=== PATIENT | female | born 1985 | race Caucasian/White ===

== ENCOUNTER 2018-07-02 05:05 | Emergency (ER) | payer MEDICAID ==
[~2018-07-02] VITALS: Ht 167.6 cm; Wt 136.0 kg
[~2018-07-02 05:05] MED LIST: DEPAKOTE
[2018-07-02] MEDS ORDERED: SODIUM CHLORIDE 0.9% 1,000 ML IV ONE (05:22)
[2018-07-02] MEDS ORDERED: ONDANSETRON HCL 4MG/2ML VIAL IV STA (05:22)
[2018-07-02] MEDS ORDERED: LORAZEPAM 2MG/ML CPJ IV STA (05:22)
[2018-07-02 05:54] LABS: BASOPHILS % 1.6 % (0.0-2.0); EOSINOPHILS % 0.2 % (0.0-5.0); HEMOGLOBIN. 15.1 g/dL (12.0-16.0); LYMPHOCYTES % 30.1 % (20.0-50.0); MEAN CORPUSCULAR HEMOGLOBIN 28.4 pg (28.0-32.0); MEAN CORPUSCULAR VOLUME 86.7 fL (81.0-99.0); MEAN PLATELET VOLUME 7.8 fl (7.4-10.4); MONOCYTES % 4.6 % (2.0-8.0); NEUTROPHILS % 63.5 % (40.0-76.0); PLATELET 401 x1000/uL (130-400); RED BLOOD CELL COUNT 5.31 mill/uL (4.2-5.4); RED CELL DISTRIBUTION WIDTH 14.9 % (11.6-14.6)
[2018-07-02 06:00] LABS: CHLORIDE 107 mEq/L (98-107)
[2018-07-02 06:04] LABS: ETHANOL BLOOD 172 mg/dL
[2018-07-02 06:09] LABS: CREATINE KINASE 601 IU/L (26-192)
[2018-07-02 06:14] LABS: HCG SCREEN NEGATIVE
[2018-07-02 06:40] LABS: CLARITY URINE CLOUDY (CLEAR); COLOR URINE YELLOW (YELLOW); KETONES URINE TRACE (NEGATIVE); LEUKOCYTE ESTERASE URINE 1+ (NEGATIVE); NITRITE URINE NEGATIVE (NEGATIVE); OCCULT BLOOD URINE 1+ (NEGATIVE); PROTEIN URINE 1+ (NEGATIVE); UROBILINOGEN URINE 0.2 E.U./dL (0.2-1.0)
[2018-07-02 06:57] LABS: *AMPHETAMINES SCREEN URINE NEGATIVE (NEGATIVE); *BARBITURATES SCREEN URINE NEGATIVE (NEGATIVE); *BENZODIAZEPINES SCREEN URINE NEGATIVE (NEGATIVE); *COCAINE SCREEN URINE NEGATIVE (NEGATIVE); METHADONE URINE SCREEN NEGATIVE (NEGATIVE)
[2018-07-02 06:58] LABS: CANNABINOID URINE SCREEN NEGATIVE (NEGATIVE); OPIATES URINE SCREEN NEGATIVE (NEGATIVE); PHENCYCLIDINE URINE SCREEN NEGATIVE (NEGATIVE)
[2018-07-02] MEDS ORDERED: NITROFURANTOIN 100MG M/M CAPSULE PO SCH ×2 (11:00→22:00)
[2018-07-03] MEDS: NITROFURANTOIN 100MG M/M CAPSULE PO SCH ×2 (04:10→15:00)
[2018-07-03] MEDS ORDERED: ACETAMINOPHEN 500MG TABLET PO ONE (04:15)
[2018-07-03 19:31] VITALS: BP 145/83
== END 2018-07-03 20:30 ==
LOC: ER 05:20
DX: F10.129 Alcohol abuse with intoxication, unspecified (principal); R45.851 Suicidal ideations; N39.0 Urinary tract infection, site not specified; R00.0 Tachycardia, unspecified; D72.829 Elevated white blood cell count, unspecified; R74.8 Abnormal levels of other serum enzymes; D47.3 Essential (hemorrhagic) thrombocythemia; K75.9 Inflammatory liver disease, unspecified; E87.2 Acidosis; F19.10 Other psychoactive substance abuse, uncomplicated; Z79.899 Other long term (current) drug therapy; Z88.0 Allergy status to penicillin; Y90.6 Blood alcohol level of 120-199 mg/100 ml
CPT/HCPCS: 36415; 80053; 80305; 80307; 80329; 81003; 82550; 82962; 84443; 84703; 85025; 93005; 96374; 96375; 99285; G0482; J2060; J2405; J7030

== ENCOUNTER 2018-11-24 19:25 | Emergency (ER) | payer MEDICAID ==
[~2018-11-24] VITALS: Ht 165.1 cm; Wt 80.0 kg
[2018-11-25] MEDS ORDERED: OLANZAPINE 10 MG/VIAL IM ONE
[2018-11-25 00:21] LABS: *BARBITURATES SCREEN URINE NEGATIVE (NEGATIVE); *BENZODIAZEPINES SCREEN URINE NEGATIVE (NEGATIVE); *COCAINE SCREEN URINE NEGATIVE (NEGATIVE); METHADONE URINE SCREEN NEGATIVE (NEGATIVE)
[2018-11-25 00:23] LABS: CANNABINOID URINE SCREEN NEGATIVE (NEGATIVE); OPIATES URINE SCREEN NEGATIVE (NEGATIVE); PHENCYCLIDINE URINE SCREEN NEGATIVE (NEGATIVE)
[2018-11-25 00:26] LABS: *AMPHETAMINES SCREEN URINE PRESUMTIVE POSITIVE (NEGATIVE)
[2018-11-25 05:05] VITALS: BP 114/59
== END 2018-11-25 13:37 | disposition home or self-care (01) ==
LOC: ER 19:25
DX: R45.851 Suicidal ideations (principal); F15.10 Other stimulant abuse, uncomplicated; F31.9 Bipolar disorder, unspecified; E11.9 Type 2 diabetes mellitus without complications
CPT/HCPCS: 80305; 81025; 99284

== ENCOUNTER 2018-11-26 01:29 | Emergency (ER) | payer MEDICAID ==
[~2018-11-26] VITALS: Ht 175.3 cm; Wt 118.8 kg
[2018-11-26 07:58] LABS: BASOPHILS % 0.8 % (0.0-2.0); EOSINOPHILS % 0.2 % (0.0-5.0); HEMATOCRIT. 40.3 % (36.0-48.0); HEMOGLOBIN. 13.6 g/dL (12.0-16.0); LYMPHOCYTES % 27.3 % (20.0-50.0); MEAN CORPUSCULAR HEMOGLOBIN 30.2 pg (28.0-32.0); MEAN PLATELET VOLUME 8.3 fl (7.4-10.4); MONOCYTES % 7.1 % (2.0-8.0); NEUTROPHILS % 64.6 % (40.0-76.0); PLATELET 316 x1000/uL (130-400); RED BLOOD CELL COUNT 4.52 mill/uL (4.2-5.4)
[2018-11-26 08:05] LABS: CHLORIDE 107 mEq/L (98-107)
[2018-11-26 08:14] LABS: ETHANOL BLOOD < 10 mg/dL
[2018-11-26 10:58] LABS: *BARBITURATES SCREEN URINE NEGATIVE (NEGATIVE); *BENZODIAZEPINES SCREEN URINE NEGATIVE (NEGATIVE); METHADONE URINE SCREEN NEGATIVE (NEGATIVE); OPIATES URINE SCREEN NEGATIVE (NEGATIVE)
[2018-11-26 10:59] LABS: CANNABINOID URINE SCREEN NEGATIVE (NEGATIVE); PHENCYCLIDINE URINE SCREEN NEGATIVE (NEGATIVE)
[2018-11-26 11:05] LABS: *AMPHETAMINES SCREEN URINE PRESUMTIVE POSITIVE (NEGATIVE); *COCAINE SCREEN URINE PRESUMTIVE POSITIVE (NEGATIVE)
[2018-11-27 14:00] VITALS: BP 126/78
== END 2018-11-27 14:37 | disposition home or self-care (01) ==
LOC: ER 01:29
DX: F15.10 Other stimulant abuse, uncomplicated (principal); F14.10 Cocaine abuse, uncomplicated; F32.9 Major depressive disorder, single episode, unspecified; F20.9 Schizophrenia, unspecified; E11.9 Type 2 diabetes mellitus without complications; F17.200 Nicotine dependence, unspecified, uncomplicated; Z86.19 Personal history of other infectious and parasitic diseases; Z88.0 Allergy status to penicillin
CPT/HCPCS: 36415; 80048; 80305; 80307; 80329; 81025; 85025; 99284; G0482

== ENCOUNTER 2018-11-30 04:29 | Emergency (ER) | payer MEDICAID ==
[~2018-11-30] VITALS: Ht 170.2 cm; Wt 118.6 kg
[2018-11-30 09:35] LABS: CLARITY URINE TURBID (CLEAR); KETONES URINE 3+ (NEGATIVE); LEUKOCYTE ESTERASE URINE 2+ (NEGATIVE); NITRITE URINE NEGATIVE (NEGATIVE); OCCULT BLOOD URINE 3+ (NEGATIVE); PROTEIN URINE 2+ (NEGATIVE); SPECIFIC GRAVITY URINE 1.038 (1.005-1.030)
[2018-11-30 09:37] LABS: BASOPHILS % 0.6 % (0.0-2.0); EOSINOPHILS % 0.4 % (0.0-5.0); HEMOGLOBIN. 14.1 g/dL (12.0-16.0); MEAN CORPUSCULAR HEMOGLOBIN 29.9 pg (28.0-32.0); MEAN PLATELET VOLUME 8.5 fl (7.4-10.4); MONOCYTES % 5.7 % (2.0-8.0); NEUTROPHILS % 70.3 % (40.0-76.0); PLATELET 340 x1000/uL (130-400); RED BLOOD CELL COUNT 4.71 mill/uL (4.2-5.4); RED CELL DISTRIBUTION WIDTH 14.9 % (11.6-14.6)
[2018-11-30 09:39] LABS: CHLORIDE 107 mEq/L (98-107)
[2018-11-30 09:39] LABS: COLOR URINE BLOODY (YELLOW)
[2018-11-30 09:43] LABS: ETHANOL BLOOD < 10 mg/dL
[2018-11-30 09:44] LABS: *BARBITURATES SCREEN URINE NEGATIVE (NEGATIVE); *BENZODIAZEPINES SCREEN URINE NEGATIVE (NEGATIVE); *COCAINE SCREEN URINE NEGATIVE (NEGATIVE); METHADONE URINE SCREEN NEGATIVE (NEGATIVE); OPIATES URINE SCREEN NEGATIVE (NEGATIVE)
[2018-11-30 09:45] LABS: CANNABINOID URINE SCREEN NEGATIVE (NEGATIVE); PHENCYCLIDINE URINE SCREEN NEGATIVE (NEGATIVE)
[2018-11-30 09:48] LABS: *AMPHETAMINES SCREEN URINE PRESUMTIVE POSITIVE (NEGATIVE)
[2018-11-30 14:16] VITALS: BP 150/92
== END 2018-11-30 14:22 | disposition home or self-care (01) ==
LOC: ER 04:29
DX: F32.9 Major depressive disorder, single episode, unspecified (principal); N39.0 Urinary tract infection, site not specified; F20.9 Schizophrenia, unspecified; E11.9 Type 2 diabetes mellitus without complications; J45.909 Unspecified asthma, uncomplicated; F17.200 Nicotine dependence, unspecified, uncomplicated; Z88.0 Allergy status to penicillin
CPT/HCPCS: 36415; 80053; 80305; 80307; 80329; 81003; 81025; 85025; 99284; G0482

== ENCOUNTER 2018-11-30 23:18 | Emergency (ER) | payer MEDICAID ==
[~2018-11-30] VITALS: Ht 180.3 cm; Wt 100.0 kg
[2018-11-30 23:23] VITALS: BP 152/92
== END 2018-12-01 00:50 | disposition left against medical advice (07) ==
LOC: ER 23:46
DX: R45.851 Suicidal ideations (principal); Z53.21 Procedure and treatment not carried out due to patient leaving prior to being seen by health care provider

== ENCOUNTER 2019-06-05 15:18 | Emergency (ER) | payer MEDICAID ==
[~2019-06-05] VITALS: Ht 177.8 cm; Wt 91.0 kg
[2019-06-05 18:09] LABS: CLARITY URINE TURBID (CLEAR); COLOR URINE DARK YELLOW (YELLOW); KETONES URINE NEGATIVE (NEGATIVE); LEUKOCYTE ESTERASE URINE 1+ (NEGATIVE); NITRITE URINE NEGATIVE (NEGATIVE); OCCULT BLOOD URINE 2+ (NEGATIVE); PH URINE 6.5 (4.5-8.0); PROTEIN URINE 1+ (NEGATIVE)
[2019-06-05 18:24] LABS: *AMPHETAMINES SCREEN URINE NEGATIVE (NEGATIVE); *BARBITURATES SCREEN URINE NEGATIVE (NEGATIVE); *BENZODIAZEPINES SCREEN URINE NEGATIVE (NEGATIVE)
[2019-06-05 18:25] LABS: CANNABINOID URINE SCREEN NEGATIVE (NEGATIVE); METHADONE URINE SCREEN NEGATIVE (NEGATIVE); OPIATES URINE SCREEN NEGATIVE (NEGATIVE); PHENCYCLIDINE URINE SCREEN NEGATIVE (NEGATIVE)
[2019-06-05 18:38] LABS: *COCAINE SCREEN URINE PRESUMTIVE POSITIVE (NEGATIVE)
[2019-06-05] MEDS ORDERED: NITROFURANTOIN 100MG M/M CAPSULE PO ONE (20:30)
[2019-06-05 20:45] LABS: BASOPHILS % 0.9 % (0.0-2.0); CHLORIDE 104 mEq/L (98-107); EOSINOPHILS % 0.4 % (0.0-5.0); HEMATOCRIT. 43.7 % (36.0-48.0); HEMOGLOBIN. 14.4 g/dL (12.0-16.0); LYMPHOCYTES % 13.3 % (20.0-50.0); MEAN CORPUSCULAR HEMOGLOBIN 30.2 pg (28.0-32.0); MEAN CORPUSCULAR VOLUME 91.6 fL (81.0-99.0); MONOCYTES % 7.6 % (2.0-8.0); NEUTROPHILS % 77.8 % (40.0-76.0); PLATELET 601 x1000/uL (130-400); RED BLOOD CELL COUNT 4.78 mill/uL (4.2-5.4); RED CELL DISTRIBUTION WIDTH 17.4 % (11.6-14.6)
[2019-06-05 20:50] LABS: ETHANOL BLOOD < 10 mg/dL
[2019-06-06 16:20] VITALS: BP 111/78
== END 2019-06-06 17:33 | disposition home or self-care (01) ==
LOC: ER 15:18
DX: F25.9 Schizoaffective disorder, unspecified (principal); R45.851 Suicidal ideations; M25.572 Pain in left ankle and joints of left foot; N39.0 Urinary tract infection, site not specified; F14.10 Cocaine abuse, uncomplicated; F41.9 Anxiety disorder, unspecified; E11.9 Type 2 diabetes mellitus without complications; Z87.81 Personal history of (healed) traumatic fracture; Z88.0 Allergy status to penicillin; Z98.890 Other specified postprocedural states
CPT/HCPCS: 36415; 73610; 80305; 80307; 80320; 80329; 99284; G0480

== ENCOUNTER 2019-11-11 03:12 | Emergency (ER) | payer MEDICAID ==
[~2019-11-11] VITALS: Ht 167.6 cm; Wt 68.0 kg
[2019-11-11 11:33] VITALS: BP 134/90
== END 2019-11-11 11:34 | disposition home or self-care (01) ==
LOC: ER 03:12
DX: Z59.0 Homelessness (principal); J45.909 Unspecified asthma, uncomplicated; E11.9 Type 2 diabetes mellitus without complications; Z88.0 Allergy status to penicillin
CPT/HCPCS: 82962; 99283

== ENCOUNTER 2019-12-16 04:27 | Emergency (ER) | payer MEDICAID ==
[~2019-12-16] VITALS: Ht 175.3 cm; Wt 72.0 kg
[2019-12-16 04:34] VITALS: BP 130/80
== END 2019-12-16 05:43 | disposition left against medical advice (07) ==
LOC: ER 04:27
DX: R10.9 Unspecified abdominal pain (principal); Z53.21 Procedure and treatment not carried out due to patient leaving prior to being seen by health care provider

== ENCOUNTER 2019-12-16 07:47 | Emergency (ER) | payer SELFPAY ==
[~2019-12-16] VITALS: Ht 175.3 cm; Wt 71.0 kg
[2019-12-16 10:45] LABS: CHLORIDE 109 mEq/L (98-107)
[2019-12-16 10:48] LABS: BASOPHILS % 0.7 % (0.0-2.0); EOSINOPHILS % 1.6 % (0.0-5.0); HEMATOCRIT. 43.1 % (36.0-48.0); HEMOGLOBIN. 14.5 g/dL (12.0-16.0); LYMPHOCYTES % 27.5 % (20.0-50.0); MEAN CORPUSCULAR HEMOGLOBIN 30.6 pg (28.0-32.0); MEAN CORPUSCULAR VOLUME 91.2 fL (81.0-99.0); MEAN PLATELET VOLUME 8.3 fl (7.4-10.4); MONOCYTES % 6.7 % (2.0-8.0); NEUTROPHILS % 63.5 % (40.0-76.0); PLATELET 468 x1000/uL (130-400); RED BLOOD CELL COUNT 4.73 mill/uL (4.2-5.4); RED CELL DISTRIBUTION WIDTH 14.6 % (11.6-14.6)
[2019-12-16 10:49] LABS: ETHANOL BLOOD < 10 mg/dL
[2019-12-16 12:00] VITALS: BP 135/88
[2019-12-16 12:19] LABS: CLARITY URINE CLEAR (CLEAR); COLOR URINE DARK YELLOW (YELLOW); KETONES URINE NEGATIVE (NEGATIVE); LEUKOCYTE ESTERASE URINE TRACE (NEGATIVE); NITRITE URINE NEGATIVE (NEGATIVE); OCCULT BLOOD URINE NEGATIVE (NEGATIVE); PROTEIN URINE TRACE (NEGATIVE); SPECIFIC GRAVITY URINE 1.029 (1.005-1.030)
[2019-12-16 13:22] LABS: *BARBITURATES SCREEN URINE NEGATIVE (NEGATIVE); METHADONE URINE SCREEN NEGATIVE (NEGATIVE); OPIATES URINE SCREEN NEGATIVE (NEGATIVE)
[2019-12-16 13:23] LABS: PHENCYCLIDINE URINE SCREEN NEGATIVE (NEGATIVE)
[2019-12-16 13:25] LABS: *AMPHETAMINES SCREEN URINE PRESUMTIVE POSITIVE (NEGATIVE); *BENZODIAZEPINES SCREEN URINE PRESUMTIVE POSITIVE (NEGATIVE); *COCAINE SCREEN URINE PRESUMTIVE POSITIVE (NEGATIVE); CANNABINOID URINE SCREEN PRESUMTIVE POSITIVE (NEGATIVE)
== END 2019-12-16 13:34 | disposition home or self-care (01) ==
LOC: ER 07:47
DX: R45.851 Suicidal ideations (principal); F17.210 Nicotine dependence, cigarettes, uncomplicated; F41.9 Anxiety disorder, unspecified; F31.9 Bipolar disorder, unspecified; F20.9 Schizophrenia, unspecified; J45.909 Unspecified asthma, uncomplicated; Z88.0 Allergy status to penicillin; Z79.899 Other long term (current) drug therapy
CPT/HCPCS: 36415; 80053; 80305; 80320; 81003; 85025; 99284; 99406; G0480

== ENCOUNTER 2020-01-10 05:40 | Emergency (ER) | payer MEDICAID ==
[~2020-01-10] VITALS: Ht 167.6 cm; Wt 55.0 kg
[2020-01-10] MEDS ORDERED: LORAZEPAM 1MG TABLET PO ONE (06:45)
[2020-01-10 07:06] LABS: CLARITY URINE CLEAR (CLEAR); COLOR URINE YELLOW (YELLOW); KETONES URINE TRACE (NEGATIVE); LEUKOCYTE ESTERASE URINE NEGATIVE (NEGATIVE); NITRITE URINE NEGATIVE (NEGATIVE); OCCULT BLOOD URINE NEGATIVE (NEGATIVE); PROTEIN URINE NEGATIVE (NEGATIVE); SPECIFIC GRAVITY URINE 1.023 (1.005-1.030)
[2020-01-10 07:29] LABS: *BARBITURATES SCREEN URINE NEGATIVE (NEGATIVE); *BENZODIAZEPINES SCREEN URINE NEGATIVE (NEGATIVE); OPIATES URINE SCREEN NEGATIVE (NEGATIVE)
[2020-01-10 07:30] LABS: CANNABINOID URINE SCREEN NEGATIVE (NEGATIVE); PHENCYCLIDINE URINE SCREEN NEGATIVE (NEGATIVE)
[2020-01-10 07:31] LABS: METHADONE URINE SCREEN NEGATIVE (NEGATIVE)
[2020-01-10 07:37] LABS: *AMPHETAMINES SCREEN URINE PRESUMTIVE POSITIVE (NEGATIVE)
[2020-01-10 07:38] LABS: *COCAINE SCREEN URINE PRESUMTIVE POSITIVE (NEGATIVE)
[2020-01-10 08:29] LABS: BASOPHILS % 0.8 % (0.0-2.0); EOSINOPHILS % 1.3 % (0.0-5.0); HEMOGLOBIN. 12.9 g/dL (12.0-16.0); MEAN CORPUSCULAR VOLUME 90.4 fL (81.0-99.0); MEAN PLATELET VOLUME 7.3 fl (7.4-10.4); MONOCYTES % 9.7 % (2.0-8.0); NEUTROPHILS % 65.2 % (40.0-76.0); PLATELET 396 x1000/uL (130-400); RED BLOOD CELL COUNT 4.31 mill/uL (4.2-5.4); RED CELL DISTRIBUTION WIDTH 14.1 % (11.6-14.6)
[2020-01-10 08:38] LABS: CHLORIDE 105 mEq/L (98-107)
[2020-01-10 08:42] LABS: ETHANOL BLOOD < 10 mg/dL
[2020-01-10 11:30] VITALS: BP 120/74
== END 2020-01-10 11:45 | disposition home or self-care (01) ==
LOC: ER 05:40
DX: T43.621A Poisoning by amphetamines, accidental (unintentional), initial encounter (principal); T40.5X1A Poisoning by cocaine, accidental (unintentional), initial encounter; F20.9 Schizophrenia, unspecified; F31.9 Bipolar disorder, unspecified; J45.909 Unspecified asthma, uncomplicated; E11.9 Type 2 diabetes mellitus without complications; F17.210 Nicotine dependence, cigarettes, uncomplicated; Z88.0 Allergy status to penicillin; Z59.0 Homelessness; Y92.89 Other specified places as the place of occurrence of the external cause
CPT/HCPCS: 36415; 80048; 80305; 80307; 80320; 80329; 81003; 81025; 85025; 99285; G0480

== ENCOUNTER 2020-01-11 04:01 | Emergency (ER) | payer MEDICAID ==
[~2020-01-11] VITALS: Ht 180.3 cm; Wt 109.0 kg
[2020-01-11 05:05] LABS: CLARITY URINE CLOUDY (CLEAR); COLOR URINE DARK YELLOW (YELLOW); KETONES URINE TRACE (NEGATIVE); LEUKOCYTE ESTERASE URINE 1+ (NEGATIVE); NITRITE URINE NEGATIVE (NEGATIVE); OCCULT BLOOD URINE NEGATIVE (NEGATIVE); PH URINE 6.5 (4.5-8.0); PROTEIN URINE TRACE (NEGATIVE); SPECIFIC GRAVITY URINE 1.034 (1.005-1.030)
[2020-01-11 05:18] LABS: EOSINOPHILS % 0.3 % (0.0-5.0); HEMATOCRIT. 39.5 % (36.0-48.0); HEMOGLOBIN. 13.6 g/dL (12.0-16.0); LYMPHOCYTES % 16.1 % (20.0-50.0); MEAN CORPUSCULAR HEMOGLOBIN 31.5 pg (28.0-32.0); MEAN CORPUSCULAR VOLUME 91.3 fL (81.0-99.0); MEAN PLATELET VOLUME 7.6 fl (7.4-10.4); MONOCYTES % 6.9 % (2.0-8.0); NEUTROPHILS % 75.7 % (40.0-76.0); PLATELET 410 x1000/uL (130-400); RED BLOOD CELL COUNT 4.33 mill/uL (4.2-5.4); RED CELL DISTRIBUTION WIDTH 14.1 % (11.6-14.6)
[2020-01-11 05:26] LABS: CHLORIDE 106 mEq/L (98-107)
[2020-01-11 05:30] LABS: ETHANOL BLOOD < 10 mg/dL
[2020-01-11 05:39] LABS: *BARBITURATES SCREEN URINE NEGATIVE (NEGATIVE); *BENZODIAZEPINES SCREEN URINE NEGATIVE (NEGATIVE); METHADONE URINE SCREEN NEGATIVE (NEGATIVE); OPIATES URINE SCREEN NEGATIVE (NEGATIVE)
[2020-01-11 05:40] LABS: PHENCYCLIDINE URINE SCREEN NEGATIVE (NEGATIVE)
[2020-01-11 05:58] LABS: *AMPHETAMINES SCREEN URINE PRESUMTIVE POSITIVE (NEGATIVE); *COCAINE SCREEN URINE PRESUMTIVE POSITIVE (NEGATIVE); CANNABINOID URINE SCREEN PRESUMTIVE POSITIVE (NEGATIVE)
[2020-01-11] MEDS: NITROFURANTOIN 100MG M/M CAPSULE PO SCH ×2 (09:04→17:30)
[2020-01-12] MEDS ORDERED: QUETIAPINE FUMARATE 50MG TABLET PO SCH (02:30)
[2020-01-12 05:30] VITALS: BP 132/76
[2020-01-12] MEDS: NITROFURANTOIN 100MG M/M CAPSULE PO SCH (09:52)
== END 2020-01-12 15:00 | disposition home or self-care (01) ==
LOC: ER 04:01
DX: F23 Brief psychotic disorder (principal); N39.0 Urinary tract infection, site not specified; R45.851 Suicidal ideations; E11.9 Type 2 diabetes mellitus without complications; F16.10 Hallucinogen abuse, uncomplicated; J45.909 Unspecified asthma, uncomplicated; F31.9 Bipolar disorder, unspecified; F17.210 Nicotine dependence, cigarettes, uncomplicated; F14.10 Cocaine abuse, uncomplicated; F12.10 Cannabis abuse, uncomplicated; Z59.0 Homelessness; Z75.1 Person awaiting admission to adequate facility elsewhere; Z88.0 Allergy status to penicillin
CPT/HCPCS: 36415; 80048; 80076; 80305; 80307; 80320; 80329; 81003; 81025; 85025; 99285; Z7610; G0480

== ENCOUNTER 2020-02-10 22:20 | Emergency (ER) | payer MEDICAID ==
[~2020-02-10] VITALS: Ht 172.7 cm; Wt 68.2 kg
[2020-02-11 00:38] LABS: BASOPHILS % 0.7 % (0.0-2.0); EOSINOPHILS % 1.3 % (0.0-5.0); HEMATOCRIT. 36.1 % (36.0-48.0); HEMOGLOBIN. 12.6 g/dL (12.0-16.0); LYMPHOCYTES % 23.9 % (20.0-50.0); MEAN CORPUSCULAR HEMOGLOBIN 31.2 pg (28.0-32.0); MEAN CORPUSCULAR VOLUME 89.8 fL (81.0-99.0); MEAN PLATELET VOLUME 7.7 fl (7.4-10.4); MONOCYTES % 5.7 % (2.0-8.0); NEUTROPHILS % 68.4 % (40.0-76.0); PLATELET 393 x1000/uL (130-400); RED BLOOD CELL COUNT 4.02 mill/uL (4.2-5.4); RED CELL DISTRIBUTION WIDTH 13.8 % (11.6-14.6)
[2020-02-11 00:45] LABS: CHLORIDE 107 mEq/L (98-107)
[2020-02-11 00:49] LABS: ETHANOL BLOOD < 10 mg/dL
[2020-02-11 00:50] LABS: HCG SCREEN NEGATIVE
[2020-02-11 01:01] LABS: CLARITY URINE CLOUDY (CLEAR); COLOR URINE DARK YELLOW (YELLOW); KETONES URINE NEGATIVE (NEGATIVE); LEUKOCYTE ESTERASE URINE NEGATIVE (NEGATIVE); NITRITE URINE NEGATIVE (NEGATIVE); OCCULT BLOOD URINE NEGATIVE (NEGATIVE); PROTEIN URINE TRACE (NEGATIVE); SPECIFIC GRAVITY URINE 1.041 (1.005-1.030)
[2020-02-11 01:18] LABS: *BARBITURATES SCREEN URINE NEGATIVE (NEGATIVE); *BENZODIAZEPINES SCREEN URINE NEGATIVE (NEGATIVE)
[2020-02-11 01:19] LABS: CANNABINOID URINE SCREEN NEGATIVE (NEGATIVE); METHADONE URINE SCREEN NEGATIVE (NEGATIVE); OPIATES URINE SCREEN NEGATIVE (NEGATIVE); PHENCYCLIDINE URINE SCREEN NEGATIVE (NEGATIVE)
[2020-02-11] MEDS ORDERED: SODIUM CHLORIDE 0.9% 1,000 ML IV ONE (01:38)
[2020-02-11 01:56] LABS: *AMPHETAMINES SCREEN URINE PRESUMTIVE POSITIVE (NEGATIVE); *COCAINE SCREEN URINE PRESUMTIVE POSITIVE (NEGATIVE)
[2020-02-11] MEDS ORDERED: QUETIAPINE FUMARATE 50MG TABLET PO SCH (09:00)
[2020-02-11] MEDS ORDERED: REGADENOSON 0.4 MG/5 ML IV ONE (10:08)
[2020-02-11 10:25] VITALS: BP 122/67
== END 2020-02-11 10:26 | disposition home or self-care (01) ==
LOC: ER 22:20
DX: F20.9 Schizophrenia, unspecified (principal); F31.9 Bipolar disorder, unspecified; F16.10 Hallucinogen abuse, uncomplicated; F15.10 Other stimulant abuse, uncomplicated; F14.10 Cocaine abuse, uncomplicated; F17.210 Nicotine dependence, cigarettes, uncomplicated; Z75.1 Person awaiting admission to adequate facility elsewhere; Z59.0 Homelessness; Z88.0 Allergy status to penicillin
CPT/HCPCS: 36415; 80053; 80305; 80320; 81003; 81025; 84703; 85025; 99284; J2785; J7030; Z7610; G0480

== ENCOUNTER 2021-04-21 15:34 | Emergency (ER) | payer MEDICAID ==
[~2021-04-21] VITALS: Ht 177.8 cm; Wt 88.0 kg
[2021-04-21 16:20] LABS: HEMATOCRIT. 48.5 % (36.0-48.0); HEMOGLOBIN. 16.5 g/dL (12.0-16.0); MEAN CORPUSCULAR HEMOGLOBIN 31.2 pg (28.0-32.0); MEAN CORPUSCULAR VOLUME 91.4 fL (81.0-99.0); MEAN PLATELET VOLUME 7.5 fl (7.4-10.4); PLATELET 392 x1000/uL (130-400); RED CELL DISTRIBUTION WIDTH 13.8 % (11.6-14.6)
[2021-04-21 16:24] LABS: CHLORIDE 107 mEq/L (98-107)
[2021-04-21 16:27] LABS: HCG SCREEN NEGATIVE
[2021-04-21 16:59] LABS: PLATELET ESTIMATE NORMAL
[2021-04-21] MEDS ORDERED: MEROPENEM 1,000 MG in SODIUM CHLORIDE 0.9% 100 ML IV ONE (18:00)
[2021-04-21] MEDS ORDERED: VANCOMYCIN 1 G PREMIX 200 ML IV ONE (18:00)
[2021-04-21] MEDS ORDERED: FENTANYL CITRATE/PF 50MCG/ML 2ML VIAL IV ONE (18:00)
[2021-04-21] MEDS ORDERED: ETOMIDATE 2MG/ML 10ML VIAL IV ONE (18:00)
[2021-04-21] MEDS ORDERED: PROPOFOL 10MG/ML 100ML 100 ML IV ONE ×2 (18:00→19:45)
[2021-04-21] MEDS ORDERED: SUCCINYLCHOLINE CHLORIDE 200MG/10ML IV ONE (18:00)
[2021-04-21 19:02] LABS: BG BASE EXCESS -7.2 mmol/L (-2.0-2.0); BG CARBOXYHEMOGLOBIN 0.2 % (0.5-1.5); BG DEOXYHEMOGLOBIN 9.8 % (0.0-5.0); BG FRACTION INSPIRED OXYGEN 100; BG HCO3 ACT 22.7 mmol/L (22.0-26.0); BG METHEMOGLOBIN 0.4 % (0.0-1.5); BG OXYGEN SATURATION 90.1 % (92.0-98.5); BG OXYHEMOGLOBIN 89.6 % (94.0-97.0); BG PCO2 66.3 mmHg (35.0-45.0); BG PH 7.153 (7.350-7.450); BG PO2 75.9 mmHg (75.0-100.0); BG SAMPLE SITE RIGHT RADIAL; BG TOTAL HEMOGLOBIN 14.1 g/dL (12.0-18.0); BG VENT MODE VENT - AC
[2021-04-21] MEDS ORDERED: FENTANYL CITRATE/PF 500 MCG in SODIUM CHLORIDE 0.9% 40 ML IV STA (20:02)
[2021-04-21] MEDS ORDERED: MIDAZOLAM HCL 100 MG in SODIUM CHLORIDE 0.9% 80 ML IV SCH (20:15)
[2021-04-21] MEDS ORDERED: FENTANYL CITRATE 2,500 MCG in SODIUM CHLORIDE 0.9% 200 ML IV PRN (20:15)
[2021-04-21] MEDS ORDERED: MIDAZOLAM HCL 100 MG in SODIUM CHLORIDE 0.9% 80 ML IV ONE (20:15)
[2021-04-21] MEDS ORDERED: MIDAZOLAM HCL 100 MG in DEXT 5% WATER 80 ML IV ONE (20:15)
[2021-04-21] MEDS ORDERED: IOHEXOL-300 100 ML BOTTLE ONE (23:26)
[2021-04-22] MEDS ORDERED: VANCOMYCIN 1 G PREMIX 200 ML IV SCH ×2 (12:45→21:15)
[2021-04-22] MEDS ORDERED: DEXT 5%/0.45% NACL KCL 20MEQ/L 1,000 ML IV ONE (12:45)
[2021-04-22] MEDS ORDERED: DEXTROSE 50% WATER 50ML SYRINGE IV ONE (12:45)
[2021-04-22] MEDS ORDERED: SODIUM CHLORIDE 0.9% 1,000 ML IV ONE (17:30)
[2021-04-22 18:59] LABS: BG BASE EXCESS -1.9 mmol/L (-2.0-2.0); BG DEOXYHEMOGLOBIN 5.5 % (0.0-5.0); BG FRACTION INSPIRED OXYGEN 100; BG HCO3 ACT 23.9 mmol/L (22.0-26.0); BG OXYGEN SATURATION 94.5 % (92.0-98.5); BG OXYHEMOGLOBIN 94.5 % (94.0-97.0); BG PCO2 44.8 mmHg (35.0-45.0); BG PH 7.345 (7.350-7.450); BG PO2 74.2 mmHg (75.0-100.0); BG SAMPLE SITE RIGHT RADIAL; BG TOTAL HEMOGLOBIN 12.6 g/dL (12.0-18.0); BG VENT MODE VENT - AC
[2021-04-22] MEDS ORDERED: MEROPENEM 1,000 MG in SODIUM CHLORIDE 0.9% 100 ML IV SCH (21:15)
[2021-04-22] MEDS ORDERED: MEROPENEM 1,000 MG in SODIUM CHLORIDE 0.9% 50 ML IV NR (21:15)
[2021-04-23] MEDS ORDERED: MIDAZOLAM HCL 100 MG in SODIUM CHLORIDE 0.9% 80 ML IV PRN (02:00)
[2021-04-23] MEDS ORDERED: FENTANYL CITRATE 2,500 MCG in SODIUM CHLORIDE 0.9% 200 ML IV PRN (02:00)
[2021-04-23] MEDS ORDERED: MEROPENEM 1,000 MG in SODIUM CHLORIDE 0.9% 50 ML IV NR (02:00)
[2021-04-23 08:47] LABS: CHLORIDE 108 mEq/L (98-107)
[2021-04-23] MEDS ORDERED: DEXT 10% WATER 1,000 ML IV STA (09:05)
[2021-04-23] MEDS ORDERED: BLOOD SUGAR DIAGNOSTIC STRIP TEST STA (09:05)
[2021-04-23] MEDS ORDERED: DEXTROSE 50% WATER 50ML SYRINGE IV ONE (09:15)
[2021-04-23 09:58] LABS: BG BASE EXCESS -3.1 mmol/L (-2.0-2.0); BG CARBOXYHEMOGLOBIN 0.3 % (0.5-1.5); BG DEOXYHEMOGLOBIN 5.7 % (0.0-5.0); BG FRACTION INSPIRED OXYGEN 100; BG METHEMOGLOBIN 0.3 % (0.0-1.5); BG OXYGEN SATURATION 94.3 % (92.0-98.5); BG OXYHEMOGLOBIN 93.7 % (94.0-97.0); BG PCO2 45.1 mmHg (35.0-45.0); BG PH 7.325 (7.350-7.450); BG PO2 71.2 mmHg (75.0-100.0); BG SAMPLE SITE RIGHT RADIAL; BG TOTAL HEMOGLOBIN 12.6 g/dL (12.0-18.0); BG VENT MODE VENT - AC
[2021-04-23] MEDS ORDERED: METRONIDAZOLE 500 MG PREMIX 100 ML IV SCH (12:00)
[2021-04-23] MEDS ORDERED: VANCOMYCIN 1 G PREMIX 200 ML IV STA (14:32)
[2021-04-23 16:34] VITALS: BP 117/69
== END 2021-04-23 15:56 | disposition short-term general hospital (02) ==
LOC: ER 15:34
DX: K12.2 Cellulitis and abscess of mouth (principal); E11.649 Type 2 diabetes mellitus with hypoglycemia without coma; Z88.0 Allergy status to penicillin
CPT/HCPCS: 36415; 36600; 70450; 70491; 71045; 80048; 80053; 82375; 82805; 82962; 83880; 84484; 84703; 85025; 93005; 94002; 94640; 99291; J2185; J2250; J2704; J3010; J3370; J3490; J7030; J7050; Q9967; Z7610; J7060

== ENCOUNTER 2021-09-03 02:53 | Emergency (ER) | payer MEDICAID ==
[~2021-09-03] VITALS: Ht 170.2 cm; Wt 170.0 kg
[2021-09-03] MEDS ORDERED: ACETAMINOPHEN 325MG TABLET PO ONE (05:15)
[2021-09-03 06:13] LABS: BASOPHILS % 0.7 % (0.0-2.0); EOSINOPHILS % 1.4 % (0.0-5.0); HEMATOCRIT. 42.7 % (36.0-48.0); HEMOGLOBIN. 14.1 g/dL (12.0-16.0); LYMPHOCYTES % 35.9 % (20.0-50.0); MEAN CORPUSCULAR HEMOGLOBIN 30.5 pg (28.0-32.0); MEAN CORPUSCULAR VOLUME 92.2 fL (81.0-99.0); MEAN PLATELET VOLUME 7.9 fl (7.4-10.4); MONOCYTES % 7.5 % (2.0-8.0); NEUTROPHILS % 54.5 % (40.0-76.0); PLATELET 367 x1000/uL (130-400); RED BLOOD CELL COUNT 4.63 mill/uL (4.2-5.4); RED CELL DISTRIBUTION WIDTH 15.2 % (11.6-14.6)
[2021-09-03 06:18] LABS: CHLORIDE 105 mEq/L (98-107)
[2021-09-03 06:22] LABS: ETHANOL BLOOD < 10 mg/dL
[2021-09-03 07:00] LABS: CLARITY URINE CLEAR (CLEAR); COLOR URINE YELLOW (YELLOW); KETONES URINE NEGATIVE (NEGATIVE); LEUKOCYTE ESTERASE URINE 1+ (NEGATIVE); NITRITE URINE NEGATIVE (NEGATIVE); OCCULT BLOOD URINE NEGATIVE (NEGATIVE); PH URINE 5.5 (4.5-8.0); PROTEIN URINE NEGATIVE (NEGATIVE)
[2021-09-03 07:28] LABS: *BARBITURATES SCREEN URINE NEGATIVE (NEGATIVE); *BENZODIAZEPINES SCREEN URINE NEGATIVE (NEGATIVE); *COCAINE SCREEN URINE NEGATIVE (NEGATIVE)
[2021-09-03 07:29] LABS: METHADONE URINE SCREEN NEGATIVE (NEGATIVE); OPIATES URINE SCREEN NEGATIVE (NEGATIVE); PHENCYCLIDINE URINE SCREEN NEGATIVE (NEGATIVE)
[2021-09-03 07:31] LABS: *AMPHETAMINES SCREEN URINE PRESUMTIVE POSITIVE (NEGATIVE); CANNABINOID URINE SCREEN PRESUMTIVE POSITIVE (NEGATIVE)
[2021-09-03 11:11] VITALS: BP 129/63
== END 2021-09-03 11:19 | disposition home or self-care (01) ==
LOC: ER 02:53
DX: F16.10 Hallucinogen abuse, uncomplicated (principal); F15.10 Other stimulant abuse, uncomplicated; F20.9 Schizophrenia, unspecified; R44.0 Auditory hallucinations; Z20.822 Contact with and (suspected) exposure to COVID-19; Z88.0 Allergy status to penicillin
CPT/HCPCS: 36415; 71045; 80053; 80305; 80320; 81003; 81025; 85025; 87426; 99284; G0480

== ENCOUNTER 2022-04-01 18:08 | Emergency (ER) | payer MEDICAID ==
[~2022-04-01] VITALS: Ht 167.6 cm; Wt 82.0 kg
[2022-04-01 18:12] VITALS: BP 122/74
== END 2022-04-01 18:58 | disposition left against medical advice (07) ==
LOC: ER 18:08
DX: Z53.21 Procedure and treatment not carried out due to patient leaving prior to being seen by health care provider (principal)

== ENCOUNTER 2022-04-05 22:59 | Emergency (ER) | payer MEDICAID ==
[~2022-04-05] VITALS: Ht 180.3 cm; Wt 81.6 kg
[2022-04-06 04:42] LABS: BASOPHILS % 0.9 % (0.0-2.0); EOSINOPHILS % 4.2 % (0.0-5.0); HEMATOCRIT. 28.3 % (36.0-48.0); HEMOGLOBIN. 9.6 g/dL (12.0-16.0); LYMPHOCYTES % 24.7 % (20.0-50.0); MEAN CORPUSCULAR VOLUME 88.4 fL (81.0-99.0); MEAN PLATELET VOLUME 7.3 fl (7.4-10.4); MONOCYTES % 10.3 % (2.0-8.0); NEUTROPHILS % 59.9 % (40.0-76.0); PLATELET 723 x1000/uL (130-400); RED CELL DISTRIBUTION WIDTH 15.5 % (11.6-14.6)
[2022-04-06 04:50] LABS: CHLORIDE 109 mEq/L (98-107)
[2022-04-06 05:14] LABS: HCG SCREEN NEGATIVE
[2022-04-06] MEDS ORDERED: CEPH500C2 MT (05:57)
[2022-04-06 06:19] LABS: CLARITY URINE CLEAR (CLEAR); COLOR URINE YELLOW (YELLOW); KETONES URINE NEGATIVE (NEGATIVE); LEUKOCYTE ESTERASE URINE TRACE (NEGATIVE); NITRITE URINE NEGATIVE (NEGATIVE); OCCULT BLOOD URINE NEGATIVE (NEGATIVE); PH URINE 7.5 (4.5-8.0); PROTEIN URINE NEGATIVE (NEGATIVE); SPECIFIC GRAVITY URINE 1.001 (1.005-1.030); UROBILINOGEN URINE 0.2 E.U./dL (0.2-1.0)
[2022-04-06 06:53] VITALS: BP 134/83
== END 2022-04-06 07:11 | disposition home or self-care (01) ==
LOC: ER 22:59
DX: N39.0 Urinary tract infection, site not specified (principal); R10.84 Generalized abdominal pain; E11.9 Type 2 diabetes mellitus without complications; F31.9 Bipolar disorder, unspecified; J45.909 Unspecified asthma, uncomplicated; F20.9 Schizophrenia, unspecified; I69.354 Hemiplegia and hemiparesis following cerebral infarction affecting left non-dominant side; Z98.890 Other specified postprocedural states; Z88.0 Allergy status to penicillin
CPT/HCPCS: 36415; 80053; 81003; 84703; 85025; 93005; 99285

== ENCOUNTER 2022-06-03 15:21 | Emergency (ER) | payer MEDICAID ==
[~2022-06-03 15:21] MED LIST changes: +CEPH500C2 MT
== END 2022-06-03 16:25 | disposition left against medical advice (07) ==
LOC: ER 15:21
DX: Z53.21 Procedure and treatment not carried out due to patient leaving prior to being seen by health care provider (principal)

== ENCOUNTER 2022-06-25 02:23 | Emergency (ER) | payer MEDICAID ==
[~2022-06-25] VITALS: Ht 172.7 cm; Wt 79.0 kg
[2022-06-25 02:54] VITALS: BP 123/88
[2022-06-25] MEDS ORDERED: IBUP-2030 MT (04:08)
[2022-06-25] MEDS ORDERED: IBUPROFEN 800MG TABLET PO ONE (04:15)
== END 2022-06-25 05:06 | disposition home or self-care (01) ==
LOC: ER 02:23
DX: S70.01XA Contusion of right hip, initial encounter (principal); S30.1XXA Contusion of abdominal wall, initial encounter; V03.99XA Pedestrian with other conveyance injured in collision with car, pick-up truck or van, unspecified whether traffic or nontraffic accident, initial encounter; Y93.89 Activity, other specified; Y92.89 Other specified places as the place of occurrence of the external cause; Y99.8 Other external cause status; J45.909 Unspecified asthma, uncomplicated; F31.9 Bipolar disorder, unspecified; E11.9 Type 2 diabetes mellitus without complications; F20.9 Schizophrenia, unspecified; Z86.73 Personal history of transient ischemic attack (TIA), and cerebral infarction without residual deficits; F14.10 Cocaine abuse, uncomplicated; F12.10 Cannabis abuse, uncomplicated; F15.10 Other stimulant abuse, uncomplicated
CPT/HCPCS: 99283

== ENCOUNTER 2022-07-05 20:41 | Emergency (ER) | payer MEDICAID ==
[~2022-07-05] VITALS: Ht 170.2 cm; Wt 85.0 kg
[~2022-07-05 20:41] MED LIST changes: +IBUP-2030 MT
[2022-07-06 00:12] LABS: BASOPHILS % 0.8 % (0.0-2.0); EOSINOPHILS % 1.6 % (0.0-5.0); HEMATOCRIT. 39.2 % (36.0-48.0); HEMOGLOBIN. 12.8 g/dL (12.0-16.0); LYMPHOCYTES % 46.8 % (20.0-50.0); MEAN CORPUSCULAR HEMOGLOBIN 26.7 pg (28.0-32.0); MEAN PLATELET VOLUME 6.7 fl (7.4-10.4); MONOCYTES % 7.3 % (2.0-8.0); NEUTROPHILS % 43.5 % (40.0-76.0); PLATELET 532 x1000/uL (130-400); RED BLOOD CELL COUNT 4.78 mill/uL (4.2-5.4); RED CELL DISTRIBUTION WIDTH 17.4 % (11.6-14.6)
[2022-07-06 00:18] LABS: CHLORIDE 106 mEq/L (98-107)
[2022-07-06 00:40] VITALS: BP 106/62
[2022-07-06 01:18] LABS: *AMPHETAMINES SCREEN URINE NEGATIVE (NEGATIVE); *BARBITURATES SCREEN URINE NEGATIVE (NEGATIVE); *BENZODIAZEPINES SCREEN URINE NEGATIVE (NEGATIVE); *COCAINE SCREEN URINE NEGATIVE (NEGATIVE); CANNABINOID URINE SCREEN NEGATIVE (NEGATIVE); METHADONE URINE SCREEN NEGATIVE (NEGATIVE); OPIATES URINE SCREEN NEGATIVE (NEGATIVE); PHENCYCLIDINE URINE SCREEN NEGATIVE (NEGATIVE)
[2022-07-06 01:25] LABS: CLARITY URINE CLEAR (CLEAR); COLOR URINE YELLOW (YELLOW); KETONES URINE NEGATIVE (NEGATIVE); LEUKOCYTE ESTERASE URINE 1+ (NEGATIVE); NITRITE URINE NEGATIVE (NEGATIVE); OCCULT BLOOD URINE NEGATIVE (NEGATIVE); PH URINE 5.5 (4.5-8.0); PROTEIN URINE NEGATIVE (NEGATIVE); SPECIFIC GRAVITY URINE 1.011 (1.005-1.030); UROBILINOGEN URINE 0.2 E.U./dL (0.2-1.0)
[2022-07-14] MEDS ORDERED: LEVO500T90 MT (04:29)
== END 2022-07-05 21:43 | disposition home or self-care (01) ==
LOC: ER 20:41
DX: T65.91XA Toxic effect of unspecified substance, accidental (unintentional), initial encounter (principal); T30.4 Corrosion of unspecified body region, unspecified degree; T79.9XXA Unspecified early complication of trauma, initial encounter; Y93.89 Activity, other specified; Y92.89 Other specified places as the place of occurrence of the external cause; Y99.8 Other external cause status
CPT/HCPCS: 36415; 71045; 80053; 80305; 81001; 83880; 85025; 93005; 99285

== ENCOUNTER 2022-07-06 20:51 | Inpatient (IN) | payer MEDICAID ==
[~2022-07-06] VITALS: Ht 180.3 cm; Wt 109.0 kg
[2022-07-06] MEDS ORDERED: VANCOMYCIN 1G PREMIX 200 ML IV STA (22:18)
[2022-07-06] MEDS ORDERED: FLUCONAZOLE 200MG/100ML PREMIX IV NR (22:30)
[2022-07-06 22:41] LABS: BASOPHILS % 0.9 % (0.0-2.0); EOSINOPHILS % 0.4 % (0.0-5.0); HEMATOCRIT. 35.1 % (36.0-48.0); HEMOGLOBIN. 11.4 g/dL (12.0-16.0); LYMPHOCYTES % 20.2 % (20.0-50.0); MEAN CORPUSCULAR HEMOGLOBIN 26.7 pg (28.0-32.0); MEAN CORPUSCULAR VOLUME 82.2 fL (81.0-99.0); MEAN PLATELET VOLUME 7.2 fl (7.4-10.4); MONOCYTES % 8.8 % (2.0-8.0); NEUTROPHILS % 69.7 % (40.0-76.0); PLATELET 466 x1000/uL (130-400); RED BLOOD CELL COUNT 4.26 mill/uL (4.2-5.4); RED CELL DISTRIBUTION WIDTH 17.2 % (11.6-14.6)
[2022-07-06 22:47] LABS: CHLORIDE 108 mEq/L (98-107); HCG SCREEN NEGATIVE
[2022-07-06 22:53] LABS: ETHANOL BLOOD < 10 mg/dL
[2022-07-07 06:00] VITALS: BP 140/80
[2022-07-07] MEDS ORDERED: DOCUSATE SODIUM 100MG CAPSULE PO PRN (10:45)
[2022-07-07] MEDS ORDERED: IPRATROPIUM/ALBUTEROL 0.5-3(2.5)MG/3ML NEB HHN PRN (10:45)
[2022-07-07] MEDS ORDERED: DIPHENHYDRAMINE 50MG/ML VIAL IV PRN (10:45)
[2022-07-07] MEDS ORDERED: ENOXAPARIN 40MG/0.4ML SYR SUBCUT SCH (10:45)
[2022-07-07] MEDS ORDERED: CLONIDINE 0.1MG TABLET PO PRN (10:45)
[2022-07-07] MEDS ORDERED: HYDRALAZINE 20MG/ML VIAL IV PRN (10:45)
[2022-07-07] MEDS ORDERED: MAGNESIUM/ALUMINUM HYDROXIDE/SIMETHICONE 30ML UDC PO PRN (10:45)
[2022-07-07] MEDS ORDERED: MORPHINE SULFATE 2 MG/ML CPJ (NOT FOR IM USE) IV PRN (10:45)
[2022-07-07] MEDS ORDERED: ACETAMINOPHEN 325MG TABLET PO PRN (10:45)
[2022-07-07] MEDS ORDERED: GUAIFENESIN 200MG/10ML SUGAR FREE UDC PO PRN (10:45)
[2022-07-07] MEDS ORDERED: HYDROCODONE/ACETAMINOPHEN 5/325MG TABLET PO PRN (10:45)
[2022-07-07] MEDS ORDERED: ONDANSETRON HCL 4MG/2ML INJ IV PRN (10:45)
[2022-07-07] MEDS ORDERED: SODIUM CHLORIDE 0.45% 1,000 ML IV SCH (10:45)
[2022-07-07] MEDS ORDERED: ENOXAPARIN 30MG/0.3ML SYR SUBCUT SCH (11:00)
[2022-07-07] MEDS ORDERED: NALOXONE HCL 0.4MG/ML VIAL IV PRN (11:00)
[2022-07-07] MEDS ORDERED: VANCOMYCIN 1G PREMIX 200 ML IV SCH (13:00)
[2022-07-07] MEDS ORDERED: SODIUM CHLORIDE 0.9% INJ 3ML FLUSH IVF SCH (14:00)
== END 2022-07-07 10:30 | disposition left against medical advice (07) | DRG 383 ==
LOC: ER 20:51 → ENRESERV 07-07 06:00 → 8WST 07-07 10:20
PROVIDERS: ADMIT Internal Medicine; ATTEND Internal Medicine
DX: L03.314 Cellulitis of groin (principal); F20.9 Schizophrenia, unspecified; I10 Essential (primary) hypertension; Z53.29 Procedure and treatment not carried out because of patient's decision for other reasons; F31.9 Bipolar disorder, unspecified; Z88.0 Allergy status to penicillin
CPT/HCPCS: 36415; 80053; 80320; 84703; 85025; 99285; J1450; J3370; G0480

== ENCOUNTER 2022-07-13 22:08 | Emergency (ER) | payer MEDICAID ==
[~2022-07-13] VITALS: Ht 170.2 cm; Wt 104.0 kg
[2022-07-13 22:10] VITALS: BP 124/74
[2022-07-13 23:07] LABS: HEMATOCRIT. 35.3 % (36.0-48.0); HEMOGLOBIN. 11.3 g/dL (12.0-16.0); MEAN CORPUSCULAR HEMOGLOBIN 27.1 pg (28.0-32.0); MEAN CORPUSCULAR VOLUME 84.7 fL (81.0-99.0); MEAN PLATELET VOLUME 7.3 fl (7.4-10.4); PLATELET 473 x1000/uL (130-400); RED BLOOD CELL COUNT 4.17 mill/uL (4.2-5.4); RED CELL DISTRIBUTION WIDTH 18.2 % (11.6-14.6)
[2022-07-13 23:10] LABS: CHLORIDE 108 mEq/L (98-107)
[2022-07-13 23:20] LABS: ETHANOL BLOOD 210 mg/dL; HCG SCREEN NEGATIVE
[2022-07-13 23:38] LABS: PLATELET ESTIMATE INCREASED
[2022-07-14] MEDS ORDERED: LEVO500T90 MT (04:29)
== END 2022-07-13 23:03 | disposition home or self-care (01) ==
LOC: ER 22:08
DX: T51.0X1A Toxic effect of ethanol, accidental (unintentional), initial encounter (principal); L98.498 Non-pressure chronic ulcer of skin of other sites with other specified severity; I10 Essential (primary) hypertension; F20.9 Schizophrenia, unspecified; F31.9 Bipolar disorder, unspecified; Y90.7 Blood alcohol level of 200-239 mg/100 ml; Z88.0 Allergy status to penicillin; Y92.89 Other specified places as the place of occurrence of the external cause
CPT/HCPCS: 36415; 80053; 80307; 80320; 80329; 84703; 85025; 99283; G0480

== ENCOUNTER 2022-07-17 22:39 | Emergency (ER) | payer MEDICAID ==
[~2022-07-17] VITALS: Ht 172.7 cm; Wt 100.0 kg
[~2022-07-17 22:39] MED LIST changes: +LEVO500T90 MT
[2022-07-18] MEDS ORDERED: IBUPROFEN 800MG TABLET PO ONE (00:45)
[2022-07-18 01:07] LABS: BASOPHILS % 0.8 % (0.0-2.0); EOSINOPHILS % 0.4 % (0.0-5.0); HEMATOCRIT. 35.7 % (36.0-48.0); HEMOGLOBIN. 11.6 g/dL (12.0-16.0); MEAN CORPUSCULAR HEMOGLOBIN 26.8 pg (28.0-32.0); MEAN CORPUSCULAR VOLUME 82.7 fL (81.0-99.0); MEAN PLATELET VOLUME 7.3 fl (7.4-10.4); MONOCYTES % 7.1 % (2.0-8.0); NEUTROPHILS % 63.7 % (40.0-76.0); PLATELET 517 x1000/uL (130-400); RED BLOOD CELL COUNT 4.32 mill/uL (4.2-5.4); RED CELL DISTRIBUTION WIDTH 18.1 % (11.6-14.6)
[2022-07-18 01:08] LABS: CLARITY URINE CLEAR (CLEAR); COLOR URINE YELLOW (YELLOW); KETONES URINE TRACE (NEGATIVE); LEUKOCYTE ESTERASE URINE NEGATIVE (NEGATIVE); NITRITE URINE NEGATIVE (NEGATIVE); OCCULT BLOOD URINE NEGATIVE (NEGATIVE); PH URINE 5.5 (4.5-8.0); PROTEIN URINE TRACE (NEGATIVE); SPECIFIC GRAVITY URINE 1.032 (1.005-1.030); UROBILINOGEN URINE 0.2 E.U./dL (0.2-1.0)
[2022-07-18 01:15] LABS: CHLORIDE 109 mEq/L (98-107)
[2022-07-18 01:23] LABS: HCG SCREEN NEGATIVE
[2022-07-18 01:31] LABS: ETHANOL BLOOD < 10 mg/dL
[2022-07-18 01:52] LABS: *AMPHETAMINES SCREEN URINE NEGATIVE (NEGATIVE); *BARBITURATES SCREEN URINE NEGATIVE (NEGATIVE); *BENZODIAZEPINES SCREEN URINE NEGATIVE (NEGATIVE); CANNABINOID URINE SCREEN NEGATIVE (NEGATIVE); METHADONE URINE SCREEN NEGATIVE (NEGATIVE); OPIATES URINE SCREEN NEGATIVE (NEGATIVE); PHENCYCLIDINE URINE SCREEN NEGATIVE (NEGATIVE)
[2022-07-18 02:08] LABS: *COCAINE SCREEN URINE PRESUMTIVE POSITIVE (NEGATIVE)
[2022-07-18] MEDS ORDERED: CEPHALEXIN 250MG CAPSULE PO ONE (09:00)
[2022-07-18 11:47] VITALS: BP 113/58
[2022-07-18] MEDS ORDERED: SERTRALINE HCL 25MG TABLET PO SCH (12:00)
[2022-07-18] MEDS ORDERED: RISPERIDONE 0.5MG TABLET PO SCH (12:00)
[2022-07-18] MEDS ORDERED: SERT25TA MT ×2 (12:47→12:48)
[2022-07-18] MEDS ORDERED: RISP05 MT ×3 (12:47→12:48)
== END 2022-07-18 13:52 | disposition home or self-care (01) ==
LOC: ER 22:39
DX: R45.850 Homicidal ideations (principal); Z20.822 Contact with and (suspected) exposure to COVID-19; F31.9 Bipolar disorder, unspecified; F20.9 Schizophrenia, unspecified; Z86.73 Personal history of transient ischemic attack (TIA), and cerebral infarction without residual deficits; F15.10 Other stimulant abuse, uncomplicated
CPT/HCPCS: 36415; 80053; 80305; 80307; 80320; 80329; 81003; 81025; 84703; 85025; 99285; C9803; U0003; U0005; Z7610; G0480

== ENCOUNTER 2022-07-28 02:49 | Emergency (ER) | payer MEDICAID ==
[~2022-07-28] VITALS: Ht 177.8 cm; Wt 82.0 kg
[~2022-07-28 02:49] MED LIST changes: -DEPAKOTE; +RISP05 MT; +SERT25TA MT
[2022-07-28 06:27] LABS: BASOPHILS % 0.9 % (0.0-2.0); EOSINOPHILS % 0.2 % (0.0-5.0); HEMATOCRIT. 36.3 % (36.0-48.0); HEMOGLOBIN. 11.5 g/dL (12.0-16.0); MEAN CORPUSCULAR HEMOGLOBIN 26.1 pg (28.0-32.0); MEAN CORPUSCULAR VOLUME 82.3 fL (81.0-99.0); MEAN PLATELET VOLUME 7.4 fl (7.4-10.4); MONOCYTES % 9.2 % (2.0-8.0); NEUTROPHILS % 69.7 % (40.0-76.0); PLATELET 431 x1000/uL (130-400); RED BLOOD CELL COUNT 4.41 mill/uL (4.2-5.4); RED CELL DISTRIBUTION WIDTH 18.1 % (11.6-14.6)
[2022-07-28 06:31] LABS: CHLORIDE 110 mEq/L (98-107)
[2022-07-28 06:35] LABS: CLARITY URINE CLEAR (CLEAR); COLOR URINE YELLOW (YELLOW); KETONES URINE TRACE (NEGATIVE); LEUKOCYTE ESTERASE URINE TRACE (NEGATIVE); NITRITE URINE NEGATIVE (NEGATIVE); OCCULT BLOOD URINE NEGATIVE (NEGATIVE); PH URINE 5.5 (4.5-8.0); PROTEIN URINE TRACE (NEGATIVE); SPECIFIC GRAVITY URINE 1.031 (1.005-1.030); UROBILINOGEN URINE 0.2 E.U./dL (0.2-1.0)
[2022-07-28 06:38] LABS: ETHANOL BLOOD < 10 mg/dL
[2022-07-28 06:54] LABS: *AMPHETAMINES SCREEN URINE NEGATIVE (NEGATIVE); *BARBITURATES SCREEN URINE NEGATIVE (NEGATIVE); *BENZODIAZEPINES SCREEN URINE NEGATIVE (NEGATIVE); METHADONE URINE SCREEN NEGATIVE (NEGATIVE); OPIATES URINE SCREEN NEGATIVE (NEGATIVE); PHENCYCLIDINE URINE SCREEN NEGATIVE (NEGATIVE)
[2022-07-28 07:03] LABS: *COCAINE SCREEN URINE PRESUMTIVE POSITIVE (NEGATIVE); CANNABINOID URINE SCREEN PRESUMTIVE POSITIVE (NEGATIVE)
[2022-07-28] MEDS ORDERED: OLANZAPINE 5MG TABLET ODT PO ONE (08:45)
[2022-07-28] MEDS: MUPIROCIN 2% OINT 15GM NS SCH ×2 (09:00→13:34)
[2022-07-28] MEDS: SERTRALINE HCL 50MG TABLET PO SCH (12:15)
[2022-07-28] MEDS: OLANZAPINE 10MG TABLET PO SCH (12:15)
[2022-07-29] MEDS: MUPIROCIN 2% OINT 15GM NS SCH (09:00)
[2022-07-29] MEDS: SERTRALINE HCL 50MG TABLET PO SCH (09:20)
[2022-07-29] MEDS: OLANZAPINE 10MG TABLET PO SCH (09:20)
[2022-07-29 14:14] VITALS: BP 122/75
== END 2022-07-29 14:50 | disposition home or self-care (01) ==
LOC: ER 02:49
DX: F20.9 Schizophrenia, unspecified (principal); U07.1 COVID-19; R45.851 Suicidal ideations; F14.129 Cocaine abuse with intoxication, unspecified; S71.032A Puncture wound without foreign body, left hip, initial encounter; F31.9 Bipolar disorder, unspecified; Z86.19 Personal history of other infectious and parasitic diseases; F12.10 Cannabis abuse, uncomplicated; Z75.1 Person awaiting admission to adequate facility elsewhere; X58.XXXA Exposure to other specified factors, initial encounter; Y93.89 Activity, other specified; Y92.018 Other place in single-family (private) house as the place of occurrence of the external cause
CPT/HCPCS: 36415; 80053; 80305; 80307; 80320; 80329; 81003; 82962; 85025; 99285; C9803; U0003; U0005; G0480

== ENCOUNTER 2022-08-10 20:40 | Emergency (ER) | payer MEDICAID ==
[~2022-08-10] VITALS: Ht 167.6 cm; Wt 82.0 kg
[2022-08-10] MEDS ORDERED: OLANZAPINE 10 MG/VIAL IM STA (22:23)
[2022-08-10 23:05] LABS: EOSINOPHILS % 0.9 % (0.0-5.0); HEMATOCRIT. 36.3 % (36.0-48.0); HEMOGLOBIN. 11.9 g/dL (12.0-16.0); MEAN CORPUSCULAR HEMOGLOBIN 27.2 pg (28.0-32.0); MEAN CORPUSCULAR VOLUME 82.8 fL (81.0-99.0); MEAN PLATELET VOLUME 7.6 fl (7.4-10.4); MONOCYTES % 8.1 % (2.0-8.0); PLATELET 431 x1000/uL (130-400); RED BLOOD CELL COUNT 4.38 mill/uL (4.2-5.4)
[2022-08-10 23:06] LABS: CHLORIDE 105 mEq/L (98-107)
[2022-08-10 23:16] LABS: ETHANOL BLOOD < 10 mg/dL
[2022-08-10 23:17] LABS: CLARITY URINE CLOUDY (CLEAR); COLOR URINE DARK YELLOW (YELLOW); KETONES URINE 1+ (NEGATIVE); LEUKOCYTE ESTERASE URINE 2+ (NEGATIVE); NITRITE URINE NEGATIVE (NEGATIVE); OCCULT BLOOD URINE NEGATIVE (NEGATIVE); PH URINE 5.5 (4.5-8.0); PROTEIN URINE 2+ (NEGATIVE); SPECIFIC GRAVITY URINE 1.037 (1.005-1.030)
[2022-08-10 23:42] LABS: *BARBITURATES SCREEN URINE NEGATIVE (NEGATIVE); *BENZODIAZEPINES SCREEN URINE NEGATIVE (NEGATIVE); CANNABINOID URINE SCREEN NEGATIVE (NEGATIVE); METHADONE URINE SCREEN NEGATIVE (NEGATIVE); OPIATES URINE SCREEN NEGATIVE (NEGATIVE); PHENCYCLIDINE URINE SCREEN NEGATIVE (NEGATIVE)
[2022-08-10 23:51] LABS: *AMPHETAMINES SCREEN URINE PRESUMTIVE POSITIVE (NEGATIVE); *COCAINE SCREEN URINE PRESUMTIVE POSITIVE (NEGATIVE)
[2022-08-11] MEDS ORDERED: CEPHALEXIN 250MG CAPSULE PO SCH (09:00)
[2022-08-11] MEDS ORDERED: SERTRALINE HCL 50MG TABLET PO SCH (12:00)
[2022-08-11 17:18] VITALS: BP 106/62
[2022-08-11] MEDS ORDERED: RISPERIDONE 1MG TABLET PO SCH (21:00)
== END 2022-08-11 16:35 ==
LOC: ER 20:40
DX: F20.9 Schizophrenia, unspecified (principal); F41.9 Anxiety disorder, unspecified; F14.10 Cocaine abuse, uncomplicated; Z91.14 Patient's other noncompliance with medication regimen; Z86.19 Personal history of other infectious and parasitic diseases; Z75.1 Person awaiting admission to adequate facility elsewhere; Z20.822 Contact with and (suspected) exposure to COVID-19
CPT/HCPCS: 36415; 80053; 80305; 80307; 80320; 80329; 81003; 81025; 85025; 87086; 96372; 99285; J3490; C9803; U0003; U0005; G0480

== ENCOUNTER 2022-09-12 02:15 | Emergency (ER) | payer MEDICAID ==
[~2022-09-12] VITALS: Ht 175.3 cm; Wt 100.0 kg
[~2022-09-12 02:15] MED LIST changes: +LEVO-65 MT; -LEVO500T90 MT
[2022-09-12 03:10] LABS: BASOPHILS % 0.4 % (0.0-2.0); EOSINOPHILS % 1.2 % (0.0-5.0); HEMATOCRIT. 41.7 % (36.0-48.0); HEMOGLOBIN. 13.4 g/dL (12.0-16.0); MEAN CORPUSCULAR HEMOGLOBIN 27.9 pg (28.0-32.0); MEAN CORPUSCULAR VOLUME 86.5 fL (81.0-99.0); MEAN PLATELET VOLUME 7.8 fl (7.4-10.4); MONOCYTES % 8.1 % (2.0-8.0); NEUTROPHILS % 63.3 % (40.0-76.0); PLATELET 419 x1000/uL (130-400); RED BLOOD CELL COUNT 4.82 mill/uL (4.2-5.4); RED CELL DISTRIBUTION WIDTH 19.2 % (11.6-14.6)
[2022-09-12 03:24] LABS: HCG SCREEN NEGATIVE
[2022-09-12 04:26] LABS: CHLORIDE 109 mEq/L (98-107); ETHANOL BLOOD < 10 mg/dL
[2022-09-12 07:45] LABS: *AMPHETAMINES SCREEN URINE NEGATIVE (NEGATIVE); *BARBITURATES SCREEN URINE NEGATIVE (NEGATIVE); *BENZODIAZEPINES SCREEN URINE NEGATIVE (NEGATIVE); CANNABINOID URINE SCREEN NEGATIVE (NEGATIVE); METHADONE URINE SCREEN NEGATIVE (NEGATIVE); OPIATES URINE SCREEN NEGATIVE (NEGATIVE); PHENCYCLIDINE URINE SCREEN NEGATIVE (NEGATIVE)
[2022-09-12 07:47] LABS: *COCAINE SCREEN URINE PRESUMTIVE POSITIVE (NEGATIVE)
[2022-09-12 14:23] VITALS: BP 133/80
== END 2022-09-12 14:24 | disposition home or self-care (01) ==
LOC: ER 02:29
DX: T40.5X1A Poisoning by cocaine, accidental (unintentional), initial encounter (principal); I49.9 Cardiac arrhythmia, unspecified; Z86.59 Personal history of other mental and behavioral disorders; Y92.9 Unspecified place or not applicable
CPT/HCPCS: 36415; 80053; 80305; 80307; 80320; 80329; 84703; 85025; 93005; 99284; G0480

== ENCOUNTER 2022-09-17 06:03 | Emergency (ER) | payer MEDICAID ==
[~2022-09-17] VITALS: Ht 167.6 cm; Wt 90.0 kg
[2022-09-17 06:49] VITALS: BP 127/87
[2022-09-17 09:19] LABS: CLARITY URINE CLEAR (CLEAR); COLOR URINE YELLOW (YELLOW); KETONES URINE NEGATIVE (NEGATIVE); LEUKOCYTE ESTERASE URINE 1+ (NEGATIVE); NITRITE URINE NEGATIVE (NEGATIVE); OCCULT BLOOD URINE NEGATIVE (NEGATIVE); PH URINE 5.5 (4.5-8.0); PROTEIN URINE NEGATIVE (NEGATIVE); SPECIFIC GRAVITY URINE 1.021 (1.005-1.030); UROBILINOGEN URINE 0.2 E.U./dL (0.2-1.0)
[2022-09-17 13:15] LABS: BASOPHILS % 1.1 % (0.0-2.0); EOSINOPHILS % 0.5 % (0.0-5.0); HEMATOCRIT. 39.4 % (36.0-48.0); HEMOGLOBIN. 13.1 g/dL (12.0-16.0); MEAN CORPUSCULAR HEMOGLOBIN 28.4 pg (28.0-32.0); MEAN CORPUSCULAR VOLUME 85.6 fL (81.0-99.0); MEAN PLATELET VOLUME 7.3 fl (7.4-10.4); NEUTROPHILS % 54.4 % (40.0-76.0); PLATELET 419 x1000/uL (130-400)
[2022-09-17 14:43] LABS: CHLORIDE 105 mEq/L (98-107)
[2022-09-17 14:51] LABS: ETHANOL BLOOD < 10 mg/dL
== END 2022-09-17 14:41 | disposition left against medical advice (07) ==
LOC: ER 06:03
DX: R45.851 Suicidal ideations (principal); Z79.899 Other long term (current) drug therapy
CPT/HCPCS: 36415; 80053; 80307; 80320; 80329; 81003; 81025; 85025; 99283; G0480

== ENCOUNTER 2022-10-17 16:41 | Emergency (ER) | payer MEDICAID ==
[~2022-10-17] VITALS: Ht 165.1 cm; Wt 75.0 kg
[2022-10-17 21:33] LABS: BASOPHILS % 1.2 % (0.0-2.0); EOSINOPHILS % 0.6 % (0.0-5.0); HEMATOCRIT. 43.5 % (36.0-48.0); HEMOGLOBIN. 14.2 g/dL (12.0-16.0); LYMPHOCYTES % 25.7 % (20.0-50.0); MEAN CORPUSCULAR HEMOGLOBIN 28.5 pg (28.0-32.0); MEAN CORPUSCULAR VOLUME 87.2 fL (81.0-99.0); MEAN PLATELET VOLUME 8.5 fl (7.4-10.4); NEUTROPHILS % 66.5 % (40.0-76.0); PLATELET 413 x1000/uL (130-400); RED BLOOD CELL COUNT 4.99 mill/uL (4.2-5.4); RED CELL DISTRIBUTION WIDTH 16.8 % (11.6-14.6)
[2022-10-17 21:41] LABS: CHLORIDE 107 mEq/L (98-107)
[2022-10-17 21:50] LABS: ETHANOL BLOOD < 10 mg/dL
[2022-10-17 21:51] LABS: HCG SCREEN NEGATIVE
[2022-10-17 22:03] LABS: CLARITY URINE CLEAR (CLEAR); COLOR URINE DARK YELLOW (YELLOW); KETONES URINE 1+ (NEGATIVE); LEUKOCYTE ESTERASE URINE TRACE (NEGATIVE); NITRITE URINE POSITIVE (NEGATIVE); OCCULT BLOOD URINE NEGATIVE (NEGATIVE); PH URINE 5.5 (4.5-8.0); PROTEIN URINE 1+ (NEGATIVE); SPECIFIC GRAVITY URINE 1.031 (1.005-1.030)
[2022-10-17 22:18] LABS: *BARBITURATES SCREEN URINE NEGATIVE (NEGATIVE); *BENZODIAZEPINES SCREEN URINE NEGATIVE (NEGATIVE); METHADONE URINE SCREEN NEGATIVE (NEGATIVE); OPIATES URINE SCREEN NEGATIVE (NEGATIVE); PHENCYCLIDINE URINE SCREEN NEGATIVE (NEGATIVE)
[2022-10-17 22:58] LABS: *AMPHETAMINES SCREEN URINE PRESUMTIVE POSITIVE (NEGATIVE); *COCAINE SCREEN URINE PRESUMTIVE POSITIVE (NEGATIVE); CANNABINOID URINE SCREEN PRESUMTIVE POSITIVE (NEGATIVE)
[2022-10-18] MEDS: NITROFURANTOIN 100MG M/M CAPSULE PO SCH ×2 (08:47→22:00)
[2022-10-18] MEDS ORDERED: TRAZODONE HCL 50MG TABLET PO SCH (21:00)
[2022-10-18] MEDS: RISPERIDONE 1MG TABLET PO SCH (22:00)
[2022-10-19] MEDS: NITROFURANTOIN 100MG M/M CAPSULE PO SCH (09:22)
[2022-10-19] MEDS: RISPERIDONE 1MG TABLET PO SCH (09:22)
[2022-10-19] MEDS ORDERED: TRAZ-251 PO (09:58)
[2022-10-19] MEDS ORDERED: RISP1 PO (09:58)
[2022-10-19 10:08] VITALS: BP 127/73
== END 2022-10-19 10:10 | disposition home or self-care (01) ==
LOC: ER 17:29
DX: F23 Brief psychotic disorder (principal); R45.851 Suicidal ideations; N39.0 Urinary tract infection, site not specified; F15.10 Other stimulant abuse, uncomplicated; F12.10 Cannabis abuse, uncomplicated; Z20.822 Contact with and (suspected) exposure to COVID-19; Z75.1 Person awaiting admission to adequate facility elsewhere; Z98.890 Other specified postprocedural states
CPT/HCPCS: 36415; 80053; 80305; 80307; 80320; 80329; 81003; 84703; 85025; 87426; 99285; C9803; G0480

== ENCOUNTER 2022-11-09 00:44 | Emergency (ER) | payer MEDICAID ==
[~2022-11-09] VITALS: Ht 180.3 cm; Wt 90.0 kg
[~2022-11-09 00:44] MED LIST changes: +RISP1 PO; +TRAZ-251 PO
[2022-11-09 01:13] LABS: BASOPHILS % 1.4 % (0.0-2.0); EOSINOPHILS % 1.3 % (0.0-5.0); HEMATOCRIT. 39.3 % (36.0-48.0); HEMOGLOBIN. 13.1 g/dL (12.0-16.0); LYMPHOCYTES % 29.9 % (20.0-50.0); MEAN CORPUSCULAR HEMOGLOBIN 28.7 pg (28.0-32.0); MEAN CORPUSCULAR VOLUME 85.9 fL (81.0-99.0); MEAN PLATELET VOLUME 7.6 fl (7.4-10.4); MONOCYTES % 8.5 % (2.0-8.0); NEUTROPHILS % 58.9 % (40.0-76.0); PLATELET 477 x1000/uL (130-400); RED BLOOD CELL COUNT 4.58 mill/uL (4.2-5.4); RED CELL DISTRIBUTION WIDTH 15.7 % (11.6-14.6)
[2022-11-09 01:15] LABS: CHLORIDE 102 mEq/L (98-107)
[2022-11-09 01:24] LABS: ETHANOL BLOOD < 10 mg/dL
[2022-11-09] MEDS ORDERED: OLANZAPINE 5MG TABLET PO SCH (10:00)
[2022-11-09 10:56] LABS: CLARITY URINE CLOUDY (CLEAR); COLOR URINE YELLOW (YELLOW); KETONES URINE NEGATIVE (NEGATIVE); LEUKOCYTE ESTERASE URINE NEGATIVE (NEGATIVE); NITRITE URINE NEGATIVE (NEGATIVE); OCCULT BLOOD URINE NEGATIVE (NEGATIVE); PH URINE 6.5 (4.5-8.0); PROTEIN URINE NEGATIVE (NEGATIVE); UROBILINOGEN URINE 0.2 E.U./dL (0.2-1.0)
[2022-11-09 11:16] LABS: *BARBITURATES SCREEN URINE NEGATIVE (NEGATIVE); *BENZODIAZEPINES SCREEN URINE NEGATIVE (NEGATIVE); CANNABINOID URINE SCREEN NEGATIVE (NEGATIVE); METHADONE URINE SCREEN NEGATIVE (NEGATIVE); OPIATES URINE SCREEN NEGATIVE (NEGATIVE); PHENCYCLIDINE URINE SCREEN NEGATIVE (NEGATIVE)
[2022-11-09 11:22] LABS: *AMPHETAMINES SCREEN URINE PRESUMTIVE POSITIVE (NEGATIVE); *COCAINE SCREEN URINE PRESUMTIVE POSITIVE (NEGATIVE)
[2022-11-09 17:53] VITALS: BP 110/80
== END 2022-11-09 18:00 ==
LOC: ER 00:44
DX: F23 Brief psychotic disorder (principal); R45.851 Suicidal ideations; F31.9 Bipolar disorder, unspecified; F11.10 Opioid abuse, uncomplicated; Z20.822 Contact with and (suspected) exposure to COVID-19; Z59.00 Homelessness unspecified; Z86.19 Personal history of other infectious and parasitic diseases
CPT/HCPCS: 36415; 80053; 80305; 80307; 80320; 80329; 81003; 83690; 85025; 99285; C9803; U0003; U0005; G0480

== ENCOUNTER 2022-12-18 02:06 | Emergency (ER) | payer MEDICAID ==
[~2022-12-18] VITALS: Ht 172.7 cm; Wt 87.0 kg
[2022-12-18 03:00] LABS: BASOPHILS % 0.6 % (0.0-2.0); EOSINOPHILS % 0.6 % (0.0-5.0); HEMATOCRIT. 39.6 % (36.0-48.0); HEMOGLOBIN. 13.2 g/dL (12.0-16.0); LYMPHOCYTES % 18.6 % (20.0-50.0); MEAN CORPUSCULAR HEMOGLOBIN 28.1 pg (28.0-32.0); MEAN CORPUSCULAR VOLUME 84.4 fL (81.0-99.0); MEAN PLATELET VOLUME 7.4 fl (7.4-10.4); MONOCYTES % 8.7 % (2.0-8.0); NEUTROPHILS % 71.5 % (40.0-76.0); PLATELET 495 x1000/uL (130-400); RED BLOOD CELL COUNT 4.68 mill/uL (4.2-5.4); RED CELL DISTRIBUTION WIDTH 16.6 % (11.6-14.6)
[2022-12-18 03:05] LABS: CHLORIDE 101 mEq/L (98-107)
[2022-12-18 03:11] LABS: HCG SCREEN NEGATIVE
[2022-12-18 03:14] LABS: ETHANOL BLOOD < 10 mg/dL
[2022-12-18] MEDS: SERTRALINE HCL 50MG TABLET PO SCH (15:16)
[2022-12-18 16:38] LABS: CLARITY URINE CLOUDY (CLEAR); COLOR URINE ORANGE (YELLOW); KETONES URINE 1+ (NEGATIVE); LEUKOCYTE ESTERASE URINE TRACE (NEGATIVE); NITRITE URINE NEGATIVE (NEGATIVE); OCCULT BLOOD URINE 3+ (NEGATIVE); PH URINE 5.5 (4.5-8.0); PROTEIN URINE 1+ (NEGATIVE); SPECIFIC GRAVITY URINE 1.026 (1.005-1.030)
[2022-12-18 16:58] LABS: *BARBITURATES SCREEN URINE NEGATIVE (NEGATIVE); *BENZODIAZEPINES SCREEN URINE NEGATIVE (NEGATIVE); CANNABINOID URINE SCREEN NEGATIVE (NEGATIVE); METHADONE URINE SCREEN NEGATIVE (NEGATIVE); OPIATES URINE SCREEN NEGATIVE (NEGATIVE)
[2022-12-18 17:07] LABS: *AMPHETAMINES SCREEN URINE PRESUMTIVE POSITIVE (NEGATIVE); *COCAINE SCREEN URINE PRESUMTIVE POSITIVE (NEGATIVE); PHENCYCLIDINE URINE SCREEN PRESUMTIVE POSITIVE (NEGATIVE)
[2022-12-18] MEDS ORDERED: RISPERIDONE 1MG TABLET PO SCH (20:30)
[2022-12-18] MEDS: RISPERIDONE 1MG TABLET PO SCH (21:00)
[2022-12-19 00:03] VITALS: BP 122/70
[2022-12-19] MEDS: RISPERIDONE 1MG TABLET PO SCH (09:30)
[2022-12-19] MEDS: SERTRALINE HCL 50MG TABLET PO SCH (09:30)
== END 2022-12-19 12:24 | disposition home or self-care (01) ==
LOC: ER 02:06
DX: R45.851 Suicidal ideations (principal); F31.9 Bipolar disorder, unspecified; F19.10 Other psychoactive substance abuse, uncomplicated; F14.10 Cocaine abuse, uncomplicated; F12.10 Cannabis abuse, uncomplicated; F15.10 Other stimulant abuse, uncomplicated; F20.9 Schizophrenia, unspecified; Z79.899 Other long term (current) drug therapy; Z20.822 Contact with and (suspected) exposure to COVID-19
CPT/HCPCS: 36415; 80053; 80305; 80320; 81003; 84703; 85025; 87426; 99285; C9803; G0480

== ENCOUNTER 2023-01-03 18:19 | Emergency (ER) | payer MEDICAID ==
[~2023-01-03] VITALS: Ht 180.3 cm; Wt 96.0 kg
[2023-01-03 19:54] LABS: BASOPHILS % 0.3 % (0.0-2.0); EOSINOPHILS % 0.1 % (0.0-5.0); HEMATOCRIT. 37.2 % (36.0-48.0); HEMOGLOBIN. 12.3 g/dL (12.0-16.0); LYMPHOCYTES % 9.3 % (20.0-50.0); MEAN CORPUSCULAR HEMOGLOBIN 28.1 pg (28.0-32.0); MEAN CORPUSCULAR VOLUME 85.2 fL (81.0-99.0); MEAN PLATELET VOLUME 7.6 fl (7.4-10.4); MONOCYTES % 8.4 % (2.0-8.0); NEUTROPHILS % 81.9 % (40.0-76.0); PLATELET 363 x1000/uL (130-400); RED BLOOD CELL COUNT 4.37 mill/uL (4.2-5.4); RED CELL DISTRIBUTION WIDTH 17.4 % (11.6-14.6)
[2023-01-03 19:58] LABS: CHLORIDE 99 mEq/L (98-107)
[2023-01-03 20:06] LABS: ETHANOL BLOOD < 10 mg/dL
[2023-01-03 23:32] LABS: CLARITY URINE CLOUDY (CLEAR); COLOR URINE YELLOW (YELLOW); KETONES URINE NEGATIVE (NEGATIVE); LEUKOCYTE ESTERASE URINE 3+ (NEGATIVE); NITRITE URINE POSITIVE (NEGATIVE); OCCULT BLOOD URINE TRACE (NEGATIVE); PH URINE 5.5 (4.5-8.0); PROTEIN URINE TRACE (NEGATIVE); SPECIFIC GRAVITY URINE 1.012 (1.005-1.030)
[2023-01-04 00:15] LABS: *BARBITURATES SCREEN URINE NEGATIVE (NEGATIVE); *BENZODIAZEPINES SCREEN URINE NEGATIVE (NEGATIVE); CANNABINOID URINE SCREEN NEGATIVE (NEGATIVE); METHADONE URINE SCREEN NEGATIVE (NEGATIVE); OPIATES URINE SCREEN NEGATIVE (NEGATIVE); PHENCYCLIDINE URINE SCREEN NEGATIVE (NEGATIVE)
[2023-01-04 00:19] LABS: *AMPHETAMINES SCREEN URINE PRESUMTIVE POSITIVE (NEGATIVE); *COCAINE SCREEN URINE PRESUMTIVE POSITIVE (NEGATIVE)
[2023-01-04] MEDS: OLANZAPINE 5MG TABLET ODT PO SCH (15:02)
[2023-01-04] MEDS: NITROFURANTOIN 100MG M/M CAPSULE PO SCH (21:30)
[2023-01-05] MEDS: NITROFURANTOIN 100MG M/M CAPSULE PO SCH ×2 (09:31→21:00)
[2023-01-05] MEDS: OLANZAPINE 5MG TABLET ODT PO SCH (09:31)
[2023-01-06] MEDS ORDERED: OLANZAPINE 5MG TABLET ODT PO SCH ×2 (08:36→08:45)
[2023-01-06] MEDS: NITROFURANTOIN 100MG M/M CAPSULE PO SCH (09:07)
[2023-01-06 10:32] VITALS: BP 122/76
== END 2023-01-06 14:38 | disposition home or self-care (01) ==
LOC: ER 18:19
DX: F23 Brief psychotic disorder (principal); F32.A Depression, unspecified; R45.851 Suicidal ideations; N39.0 Urinary tract infection, site not specified; F17.210 Nicotine dependence, cigarettes, uncomplicated; F14.10 Cocaine abuse, uncomplicated; F12.10 Cannabis abuse, uncomplicated; F15.10 Other stimulant abuse, uncomplicated; F11.10 Opioid abuse, uncomplicated; Z20.822 Contact with and (suspected) exposure to COVID-19; Z75.1 Person awaiting admission to adequate facility elsewhere; Z86.19 Personal history of other infectious and parasitic diseases; Z59.00 Homelessness unspecified
CPT/HCPCS: 36415; 80053; 80305; 80307; 80320; 80329; 81003; 85025; 87086; 87186; 87426; 99285; C9803; G0480

== ENCOUNTER 2023-01-06 20:04 | Emergency (ER) | payer MEDICAID ==
[~2023-01-06] VITALS: Ht 160 cm; Wt 70.0 kg
[2023-01-06 20:32] VITALS: BP 115/72
== END 2023-01-06 21:30 | disposition home or self-care (01) ==
LOC: ER 20:04
DX: Z04.89 Encounter for examination and observation for other specified reasons (principal); F14.10 Cocaine abuse, uncomplicated; F12.10 Cannabis abuse, uncomplicated; F15.10 Other stimulant abuse, uncomplicated; F11.10 Opioid abuse, uncomplicated; F32.A Depression, unspecified; F20.9 Schizophrenia, unspecified; Z86.19 Personal history of other infectious and parasitic diseases; Z59.00 Homelessness unspecified
CPT/HCPCS: 99283

== ENCOUNTER 2023-01-06 21:46 | Emergency (ER) | payer MEDICAID ==
[~2023-01-06] VITALS: Ht 162.6 cm; Wt 70.0 kg
[2023-01-06 22:00] VITALS: BP 119/89
== END 2023-01-06 23:46 | disposition home or self-care (01) ==
LOC: ER 21:55
DX: Z04.89 Encounter for examination and observation for other specified reasons (principal); F20.9 Schizophrenia, unspecified; F14.10 Cocaine abuse, uncomplicated; F12.10 Cannabis abuse, uncomplicated; F15.10 Other stimulant abuse, uncomplicated; F11.10 Opioid abuse, uncomplicated; Z59.00 Homelessness unspecified
CPT/HCPCS: 99283

== ENCOUNTER 2023-08-22 11:52 | Emergency (ER) | payer MEDICAID ==
[~2023-08-22] VITALS: Ht 175.3 cm; Wt 79.0 kg
[~2023-08-22 11:52] MED LIST changes: +NITR-87 MT
[2023-08-22 11:57] VITALS: BP 156/96; PULSE 65; RESP 18; TEMP 97.7; O2SAT 100
[2023-08-22] MEDS ORDERED: SODIUM CHLORIDE 0.9% 1,000 ML IV ONE (12:15)
[2023-08-22 14:39] LABS: BASOPHILS % 0.2 % (0.0-2.0); EOSINOPHILS % 0.2 % (0.0-5.0); HEMATOCRIT. 43.1 % (36.0-48.0); HEMOGLOBIN. 13.9 g/dL (12.0-16.0); LYMPHOCYTES % 8.7 % (20.0-50.0); MEAN CORPUSCULAR HEMOGLOBIN 29.9 pg (28.0-32.0); MEAN CORPUSCULAR HGB CONC 32.3 g/dL (31.0-37.0); MEAN CORPUSCULAR VOLUME 92.8 fL (81.0-99.0); MEAN PLATELET VOLUME 7.5 fl (7.4-10.4); MONOCYTES % 10.1 % (2.0-8.0); NEUTROPHILS % 80.8 % (40.0-76.0); PLATELET 694 x1000/uL (130-400); RED BLOOD CELL COUNT 4.65 mill/uL (4.2-5.4); RED CELL DISTRIBUTION WIDTH 16.1 % (11.6-14.6); WHITE BLOOD COUNT 11.3 x1000/uL (4.5-11.0)
[2023-08-22 14:49] LABS: INDEX HEMOLYSI 1 (1-3); INDEX ICTERIC 1 (1-4); INDEX LIPEMIC 1 (1-3)
[2023-08-22 14:59] LABS: BILIRUBIN TOTAL 0.3 mg/dL (0.1-1.0); ETHANOL BLOOD 20 mg/dL (<10); PROTEIN TOTAL 7.2 g/dL (6.0-8.3)
[2023-08-22 15:30] LABS: ALANINE AMINOTRANSFERASE 18 IU/L (13-61); ALBUMIN 2.8 g/dL (3.4-5.0); ASPARTATE AMINOTRANSFERASE 12 IU/L (15-37); CALCIUM 7.6 mg/dL (8.5-10.1); CARBON DIOXIDE 21 mEq/L (21-32); CHLORIDE 108 mEq/L (98-107); CREATININE 0.7 mg/dL (0.6-1.3); GLUCOSE 85 mg/dL (70-105); POTASSIUM 3.5 mEq/L (3.5-5.1); SODIUM 137 mEq/L (136-145); UREA NITROGEN BLOOD 9 mg/dL (7-21)
== END 2023-08-22 17:13 | disposition home or self-care (01) ==
LOC: ER 11:52
DX: R10.9 Unspecified abdominal pain (principal); R51.9 Headache, unspecified; F14.10 Cocaine abuse, uncomplicated; F15.10 Other stimulant abuse, uncomplicated; Z88.0 Allergy status to penicillin; Z86.73 Personal history of transient ischemic attack (TIA), and cerebral infarction without residual deficits; Z86.59 Personal history of other mental and behavioral disorders
CPT/HCPCS: 80053; 80320; 83690; 85025; 36415; 71045; 70450; 96360; 96361; 99285; J7030; G0480

== ENCOUNTER 2023-09-02 07:32 | Emergency (ER) | payer MEDICAID ==
[~2023-09-02] VITALS: Ht 165.1 cm; Wt 65.0 kg
[2023-09-02 07:33] VITALS: BP 155/102; PULSE 94; RESP 16; TEMP 97.6; O2SAT 96
[2023-09-02] MEDS ORDERED: ONDANSETRON HCL 4MG/2ML INJ IV STA (07:52)
[2023-09-02] MEDS ORDERED: SODIUM CHLORIDE 0.9% 1,000 ML IV ONE (08:00)
[2023-09-02] MEDS ORDERED: ONDANSETRON HCL 4MG/2ML INJ IV NR (10:19)
== END 2023-09-02 11:19 | disposition home or self-care (01) ==
LOC: ER 07:32
DX: R11.2 Nausea with vomiting, unspecified (principal); R10.84 Generalized abdominal pain; F31.9 Bipolar disorder, unspecified; F20.9 Schizophrenia, unspecified; F14.10 Cocaine abuse, uncomplicated; F15.10 Other stimulant abuse, uncomplicated; Z79.899 Other long term (current) drug therapy; Z86.73 Personal history of transient ischemic attack (TIA), and cerebral infarction without residual deficits
CPT/HCPCS: 99283; 96374; 96361; J2405; J7030

== ENCOUNTER 2023-09-10 20:35 | Emergency (ER) | payer MEDICAID ==
[~2023-09-10] VITALS: Ht 175.3 cm; Wt 82.0 kg
[2023-09-10 21:00] VITALS: BP 150/103; PULSE 89; RESP 16; TEMP 98.2; O2SAT 98
[2023-09-10 23:26] LABS: BASOPHILS % 0.4 % (0.0-2.0); EOSINOPHILS % 0.4 % (0.0-5.0); HEMATOCRIT. 39.4 % (36.0-48.0); HEMOGLOBIN. 13.1 g/dL (12.0-16.0); LYMPHOCYTES % 14.3 % (20.0-50.0); MEAN CORPUSCULAR HEMOGLOBIN 29.5 pg (28.0-32.0); MEAN CORPUSCULAR HGB CONC 33.2 g/dL (31.0-37.0); MEAN CORPUSCULAR VOLUME 88.8 fL (81.0-99.0); MEAN PLATELET VOLUME 7.9 fl (7.4-10.4); MONOCYTES % 7.9 % (2.0-8.0); PLATELET 369 x1000/uL (130-400); RED BLOOD CELL COUNT 4.44 mill/uL (4.2-5.4); RED CELL DISTRIBUTION WIDTH 15.7 % (11.6-14.6); WHITE BLOOD COUNT 9.3 x1000/uL (4.5-11.0)
[2023-09-10 23:41] LABS: CHLORIDE 108 mEq/L (98-107); INDEX HEMOLYSI 1 (1-3); INDEX ICTERIC 1 (1-4); INDEX LIPEMIC 1 (1-3); POTASSIUM 3.6 mEq/L (3.5-5.1); SODIUM 139 mEq/L (136-145)
[2023-09-10 23:49] LABS: ACETAMINOPHEN < 2 ug/mL (10-30); ALANINE AMINOTRANSFERASE 26 IU/L (13-61); ASPARTATE AMINOTRANSFERASE 28 IU/L (15-37); BILIRUBIN TOTAL 0.5 mg/dL (0.1-1.0); CALCIUM 8.1 mg/dL (8.5-10.1); CARBON DIOXIDE 25 mEq/L (21-32); CREATININE 0.6 mg/dL (0.6-1.3); ETHANOL BLOOD < 10 mg/dL (<10); GLUCOSE 109 mg/dL (70-105); PROTEIN TOTAL 6.6 g/dL (6.0-8.3); UREA NITROGEN BLOOD 13 mg/dL (7-21)
== END 2023-09-11 10:55 | disposition home or self-care (01) ==
LOC: ER 20:54
DX: F20.9 Schizophrenia, unspecified (principal); I10 Essential (primary) hypertension; E11.9 Type 2 diabetes mellitus without complications; F15.90 Other stimulant use, unspecified, uncomplicated; F14.90 Cocaine use, unspecified, uncomplicated; Z88.0 Allergy status to penicillin; Z88.8 Allergy status to other drugs, medicaments and biological substances
CPT/HCPCS: 36415; 80053; 80307; 80320; 80329; 85025; 99284; G0480

== ENCOUNTER 2023-09-11 20:31 | Emergency (ER) | payer MEDICAID ==
[~2023-09-11] VITALS: Ht 167.6 cm; Wt 62.0 kg
[2023-09-11 20:36] VITALS: O2SAT 99
[2023-09-11] MEDS ORDERED: SODIUM CHLORIDE 0.9% 1,000 ML IV ONE (21:15)
[2023-09-11 21:34] LABS: CLARITY URINE CLOUDY (CLEAR); COLOR URINE YELLOW (YELLOW); GLUCOSE URINE NEGATIVE (NEGATIVE); KETONES URINE TRACE (NEGATIVE); LEUKOCYTE ESTERASE URINE TRACE (NEGATIVE); NITRITE URINE NEGATIVE (NEGATIVE); OCCULT BLOOD URINE NEGATIVE (NEGATIVE); PROTEIN URINE NEGATIVE (NEGATIVE); SPECIFIC GRAVITY URINE 1.027 (1.005-1.030)
[2023-09-11 21:36] LABS: SQUAMOUS EPITHELIAL CELL URINE 1+ /lpf (RARE/1+); YEAST URINE NONE SEEN
[2023-09-11 21:49] LABS: *BARBITURATES SCREEN URINE NEGATIVE (NEGATIVE); *BENZODIAZEPINES SCREEN URINE NEGATIVE (NEGATIVE); *COCAINE SCREEN URINE NEGATIVE (NEGATIVE); CANNABINOID URINE SCREEN NEGATIVE (NEGATIVE); ECSTASY MDMA SCREEN URINE NEGATIVE (NEGATIVE); OPIATES URINE SCREEN NEGATIVE (NEGATIVE); PHENCYCLIDINE URINE SCREEN NEGATIVE (NEGATIVE)
[2023-09-11 21:50] LABS: BACTERIA URINE 3+; RBC URINE 0-2 /hpf (0-2)
[2023-09-11 21:52] LABS: WBC URINE 0-2 /hpf (0-2)
[2023-09-11 21:56] LABS: *AMPHETAMINES SCREEN URINE PRESUMTIVE POSITIVE (NEGATIVE)
[2023-09-11 22:00] LABS: BASOPHILS % 0.8 % (0.0-2.0); EOSINOPHILS % 1.8 % (0.0-5.0); HEMATOCRIT. 38.4 % (36.0-48.0); LYMPHOCYTES % 23.3 % (20.0-50.0); MEAN CORPUSCULAR HEMOGLOBIN 29.9 pg (28.0-32.0); MEAN CORPUSCULAR HGB CONC 33.8 g/dL (31.0-37.0); MEAN CORPUSCULAR VOLUME 88.4 fL (81.0-99.0); MEAN PLATELET VOLUME 8.1 fl (7.4-10.4); NEUTROPHILS % 66.1 % (40.0-76.0); PLATELET 362 x1000/uL (130-400); RED BLOOD CELL COUNT 4.35 mill/uL (4.2-5.4); RED CELL DISTRIBUTION WIDTH 15.8 % (11.6-14.6); WHITE BLOOD COUNT 8.2 x1000/uL (4.5-11.0)
[2023-09-11 22:07] LABS: HCG SCREEN NEGATIVE
[2023-09-11 22:09] LABS: CHLORIDE 111 mEq/L (98-107); INDEX HEMOLYSI 1 (1-3); INDEX ICTERIC 1 (1-4); INDEX LIPEMIC 1 (1-3); POTASSIUM 3.7 mEq/L (3.5-5.1); SODIUM 140 mEq/L (136-145)
[2023-09-11 22:10] LABS: AMMONIA 30 uMol/L (<32)
[2023-09-11 22:18] LABS: ACETAMINOPHEN <2 ug/mL ug/mL (10-30); ALANINE AMINOTRANSFERASE 27 IU/L (13-61); ALBUMIN 3.2 g/dL (3.4-5.0); ASPARTATE AMINOTRANSFERASE 26 IU/L (15-37); BILIRUBIN TOTAL 0.3 mg/dL (0.1-1.0); CALCIUM 8.6 mg/dL (8.5-10.1); CARBON DIOXIDE 26 mEq/L (21-32); CREATININE 0.6 mg/dL (0.6-1.3); ETHANOL BLOOD < 10 mg/dL (<10); GLUCOSE 82 mg/dL (70-105); NT PRO B-TYPE NATRIURETIC PEP 621 pg/mL (5-125); PROTEIN TOTAL 6.9 g/dL (6.0-8.3); UREA NITROGEN BLOOD 13 mg/dL (7-21)
[2023-09-11 22:35] LABS: TROPONIN I HIGH SENSITIVITY 50 ng/L (<54)
[2023-09-12 06:56] VITALS: BP 156/94; PULSE 83; RESP 16; TEMP 98
[2023-09-12] MEDS ORDERED: OLANZAPINE 5MG TABLET ODT PO SCH (12:00)
== END 2023-09-12 12:45 | disposition home or self-care (01) ==
LOC: ER 20:31
DX: R41.82 Altered mental status, unspecified (principal); F12.10 Cannabis abuse, uncomplicated; Z20.822 Contact with and (suspected) exposure to COVID-19; Z88.0 Allergy status to penicillin; Z86.73 Personal history of transient ischemic attack (TIA), and cerebral infarction without residual deficits; Z86.59 Personal history of other mental and behavioral disorders
CPT/HCPCS: 80053; 80305; 81003; 80307; 80329; 80320; 82140; 82962; 84703; 83880; 85025; 84484; 36415; 71045; 70450; 93005; 96360; 99285; 87426; J7030; C9803; G0480

== ENCOUNTER 2023-09-20 20:16 | Emergency (ER) | payer MEDICAID ==
[~2023-09-20] VITALS: Ht 170.2 cm; Wt 80.0 kg
[2023-09-20 20:22] VITALS: O2SAT 98
[2023-09-21 00:50] LABS: BASOPHILS % 0.6 % (0.0-2.0); EOSINOPHILS % 1.5 % (0.0-5.0); HEMATOCRIT. 41.5 % (36.0-48.0); HEMOGLOBIN. 13.8 g/dL (12.0-16.0); LYMPHOCYTES % 25.2 % (20.0-50.0); MEAN CORPUSCULAR HEMOGLOBIN 29.6 pg (28.0-32.0); MEAN CORPUSCULAR HGB CONC 33.2 g/dL (31.0-37.0); MEAN CORPUSCULAR VOLUME 89.2 fL (81.0-99.0); MEAN PLATELET VOLUME 7.5 fl (7.4-10.4); MONOCYTES % 6.9 % (2.0-8.0); NEUTROPHILS % 65.8 % (40.0-76.0); PLATELET 457 x1000/uL (130-400); RED BLOOD CELL COUNT 4.65 mill/uL (4.2-5.4); WHITE BLOOD COUNT 8.8 x1000/uL (4.5-11.0)
[2023-09-21 01:07] LABS: CHLORIDE 108 mEq/L (98-107); INDEX HEMOLYSI 1 (1-3); INDEX ICTERIC 1 (1-4); INDEX LIPEMIC 1 (1-3); POTASSIUM 3.9 mEq/L (3.5-5.1); SODIUM 142 mEq/L (136-145)
[2023-09-21 01:12] LABS: HCG SCREEN NEGATIVE
[2023-09-21 01:16] LABS: ACETAMINOPHEN < 2 ug/mL (10-30); ALANINE AMINOTRANSFERASE 24 IU/L (13-61); ALBUMIN 3.2 g/dL (3.4-5.0); ASPARTATE AMINOTRANSFERASE 21 IU/L (15-37); BILIRUBIN TOTAL 0.5 mg/dL (0.1-1.0); CALCIUM 8.7 mg/dL (8.5-10.1); CARBON DIOXIDE 30 mEq/L (21-32); CREATININE 0.9 mg/dL (0.6-1.3); ETHANOL BLOOD < 10 mg/dL (<10); GLUCOSE 125 mg/dL (70-105); PROTEIN TOTAL 6.6 g/dL (6.0-8.3); UREA NITROGEN BLOOD 12 mg/dL (7-21)
[2023-09-21 05:09] LABS: CLARITY URINE TURBID (CLEAR); COLOR URINE YELLOW (YELLOW); GLUCOSE URINE NEGATIVE (NEGATIVE); KETONES URINE NEGATIVE (NEGATIVE); LEUKOCYTE ESTERASE URINE 2+ (NEGATIVE); NITRITE URINE POSITIVE (NEGATIVE); OCCULT BLOOD URINE NEGATIVE (NEGATIVE); PROTEIN URINE NEGATIVE (NEGATIVE); SPECIFIC GRAVITY URINE 1.007 (1.005-1.030); UROBILINOGEN URINE 0.2 E.U./dL (0.2-1.0)
[2023-09-21 05:36] LABS: SQUAMOUS EPITHELIAL CELL URINE 1+ /lpf (RARE/1+)
[2023-09-21 05:37] LABS: *AMPHETAMINES SCREEN URINE NEGATIVE (NEGATIVE); *BARBITURATES SCREEN URINE NEGATIVE (NEGATIVE); *BENZODIAZEPINES SCREEN URINE NEGATIVE (NEGATIVE); BACTERIA URINE 4+; CANNABINOID URINE SCREEN NEGATIVE (NEGATIVE); ECSTASY MDMA SCREEN URINE NEGATIVE (NEGATIVE); METHADONE URINE SCREEN NEGATIVE (NEGATIVE); OPIATES URINE SCREEN NEGATIVE (NEGATIVE); PHENCYCLIDINE URINE SCREEN PRESUMTIVE POSITIVE (NEGATIVE)
[2023-09-21 05:38] LABS: RBC URINE 0-2 /hpf (0-2); YEAST URINE NONE SEEN
[2023-09-21] MEDS ORDERED: NITROFURANTOIN 100MG M/M CAPSULE PO SCH (09:00)
[2023-09-21] MEDS ORDERED: RISPERIDONE 1MG TABLET PO SCH (14:00)
[2023-09-21 19:37] VITALS: BP 131/83; PULSE 87; RESP 16; TEMP 98
== END 2023-09-21 20:20 ==
LOC: ER 23:15
DX: R45.851 Suicidal ideations (principal); N39.0 Urinary tract infection, site not specified; F17.200 Nicotine dependence, unspecified, uncomplicated; F12.10 Cannabis abuse, uncomplicated; E11.9 Type 2 diabetes mellitus without complications; I10 Essential (primary) hypertension; Z88.0 Allergy status to penicillin; Z86.73 Personal history of transient ischemic attack (TIA), and cerebral infarction without residual deficits; Z20.822 Contact with and (suspected) exposure to COVID-19; Z00.00 Encounter for general adult medical examination without abnormal findings
CPT/HCPCS: 80305; 81003; 87086; 36415; 99285; 80053; 80307; 80329; 80320; 84703; 85025; 87426; C9803; G0480

== ENCOUNTER 2023-10-05 04:16 | Emergency (ER) | payer MEDICAID | END 2023-10-05 04:53 | disposition left against medical advice (07) | LOC: ER 04:16 | DX: Z53.21 Procedure and treatment not carried out due to patient leaving prior to being seen by health care provider (principal) ==

== ENCOUNTER 2023-10-07 18:18 | Emergency (ER) | payer MEDICAID ==
[~2023-10-07] VITALS: Ht 165.1 cm; Wt 68.0 kg
[2023-10-07 18:36] VITALS: O2SAT 98
[2023-10-07] MEDS ORDERED: DIPHENHYDRAMINE 50MG CAPSULE PO ONE (19:15)
[2023-10-07] MEDS: OLANZAPINE 10MG TABLET PO SCH ×2 (19:15→23:39)
[2023-10-07] MEDS: DIPHENHYDRAMINE 25MG CAPSULE PO NR ×2 (19:30→23:39)
[2023-10-07 22:46] LABS: BASOPHILS % 0.4 % (0.0-2.0); EOSINOPHILS % 1.9 % (0.0-5.0); HEMATOCRIT. 38.6 % (36.0-48.0); HEMOGLOBIN. 12.7 g/dL (12.0-16.0); LYMPHOCYTES % 28.6 % (20.0-50.0); MEAN CORPUSCULAR HEMOGLOBIN 30.1 pg (28.0-32.0); MEAN CORPUSCULAR HGB CONC 32.8 g/dL (31.0-37.0); MEAN CORPUSCULAR VOLUME 91.6 fL (81.0-99.0); MEAN PLATELET VOLUME 7.2 fl (7.4-10.4); MONOCYTES % 7.3 % (2.0-8.0); NEUTROPHILS % 61.8 % (40.0-76.0); PLATELET 444 x1000/uL (130-400); RED BLOOD CELL COUNT 4.21 mill/uL (4.2-5.4); RED CELL DISTRIBUTION WIDTH 15.5 % (11.6-14.6); WHITE BLOOD COUNT 7.8 x1000/uL (4.5-11.0)
[2023-10-07 23:03] LABS: ACETAMINOPHEN < 2 ug/mL (10-30); ALANINE AMINOTRANSFERASE 23 IU/L (10-49); ALBUMIN 3.7 g/dL (3.2-4.8); ASPARTATE AMINOTRANSFERASE 23 IU/L (<34); BILIRUBIN TOTAL 0.7 mg/dL (0.1-1.0); CARBON DIOXIDE 27 mEq/L (21-32); CHLORIDE 108 mEq/L (98-107); CREATININE 0.5 mg/dL (0.6-1.0); GLUCOSE 83 mg/dL (70-105); POTASSIUM 3.7 mEq/L (3.5-5.1); SODIUM 142 mEq/L (136-145); UREA NITROGEN BLOOD 15 mg/dL (9-23)
[2023-10-07 23:06] LABS: ETHANOL BLOOD < 10 mg/dL (<10)
[2023-10-07 23:13] LABS: HCG SCREEN NEGATIVE
[2023-10-08] MEDS ORDERED: RISPERIDONE 1MG TABLET PO SCH (06:30)
[2023-10-08 08:45] VITALS: BP 130/86; PULSE 73; RESP 16; TEMP 98.7
[2023-10-09] MEDS ORDERED: RISPERIDONE 1MG TABLET PO SCH (09:00)
== END 2023-10-08 08:51 | disposition home or self-care (01) ==
LOC: ER 18:18
DX: R45.851 Suicidal ideations (principal); F20.9 Schizophrenia, unspecified; F10.229 Alcohol dependence with intoxication, unspecified; F41.9 Anxiety disorder, unspecified; F31.9 Bipolar disorder, unspecified; E11.9 Type 2 diabetes mellitus without complications; I10 Essential (primary) hypertension; F12.10 Cannabis abuse, uncomplicated; Z86.73 Personal history of transient ischemic attack (TIA), and cerebral infarction without residual deficits; Z79.899 Other long term (current) drug therapy; Z88.0 Allergy status to penicillin; Z20.822 Contact with and (suspected) exposure to COVID-19; Y90.0 Blood alcohol level of less than 20 mg/100 ml
CPT/HCPCS: 80053; 80307; 80329; 80320; 84703; 85025; 36415; 93005; 99284; 87426; Q0163; C9803; G0480

== ENCOUNTER 2023-10-09 17:45 | Emergency (ER) | payer MEDICAID ==
[~2023-10-09] VITALS: Ht 162.6 cm; Wt 67.0 kg
[2023-10-09 17:57] VITALS: O2SAT 100
[2023-10-09 21:12] LABS: BASOPHILS % 1.1 % (0.0-2.0); EOSINOPHILS % 1.4 % (0.0-5.0); HEMATOCRIT. 35.2 % (36.0-48.0); HEMOGLOBIN. 11.9 g/dL (12.0-16.0); LYMPHOCYTES % 32.6 % (20.0-50.0); MEAN CORPUSCULAR HEMOGLOBIN 30.6 pg (28.0-32.0); MEAN CORPUSCULAR HGB CONC 33.8 g/dL (31.0-37.0); MEAN CORPUSCULAR VOLUME 90.4 fL (81.0-99.0); MEAN PLATELET VOLUME 7.2 fl (7.4-10.4); NEUTROPHILS % 55.9 % (40.0-76.0); PLATELET 414 x1000/uL (130-400); RED CELL DISTRIBUTION WIDTH 15.6 % (11.6-14.6); WHITE BLOOD COUNT 6.7 x1000/uL (4.5-11.0)
[2023-10-09 21:23] LABS: CLARITY URINE CLEAR (CLEAR); COLOR URINE YELLOW (YELLOW); GLUCOSE URINE NEGATIVE (NEGATIVE); KETONES URINE NEGATIVE (NEGATIVE); LEUKOCYTE ESTERASE URINE NEGATIVE (NEGATIVE); NITRITE URINE NEGATIVE (NEGATIVE); OCCULT BLOOD URINE NEGATIVE (NEGATIVE); PROTEIN URINE NEGATIVE (NEGATIVE); SPECIFIC GRAVITY URINE 1.013 (1.005-1.030); UROBILINOGEN URINE 0.2 E.U./dL (0.2-1.0)
[2023-10-09 21:44] LABS: HCG SCREEN NEGATIVE
[2023-10-09 21:53] LABS: *AMPHETAMINES SCREEN URINE PRESUMPTIVE POSITIVE (NEGATIVE); *BARBITURATES SCREEN URINE NEGATIVE (NEGATIVE); *BENZODIAZEPINES SCREEN URINE NEGATIVE (NEGATIVE); *COCAINE SCREEN URINE PRESUMPTIVE POSITIVE (NEGATIVE); CANNABINOID URINE SCREEN PRESUMPTIVE POSITIVE (NEGATIVE); ECSTASY MDMA SCREEN URINE CONF.TEST INDICATED (NEGATIVE); METHADONE URINE SCREEN Neg (NEGATIVE); OPIATES URINE SCREEN NEGATIVE (NEGATIVE); PHENCYCLIDINE URINE SCREEN NEGATIVE (NEGATIVE)
[2023-10-09 23:06] LABS: ACETAMINOPHEN < 2 ug/mL (10-30); ALANINE AMINOTRANSFERASE 21 IU/L (10-49); ALBUMIN 3.8 g/dL (3.2-4.8); ASPARTATE AMINOTRANSFERASE 22 IU/L (<34); BILIRUBIN TOTAL 0.9 mg/dL (0.1-1.0); CARBON DIOXIDE 30 mEq/L (21-32); CHLORIDE 108 mEq/L (98-107); CREATININE 0.7 mg/dL (0.6-1.0); GLUCOSE 91 mg/dL (70-105); POTASSIUM 3.9 mEq/L (3.5-5.1); SODIUM 142 mEq/L (136-145); UREA NITROGEN BLOOD 9 mg/dL (9-23)
[2023-10-09 23:07] LABS: ETHANOL BLOOD < 10 mg/dL (<10)
[2023-10-10] MEDS ORDERED: RISPERIDONE 1MG TABLET PO SCH (09:30)
[2023-10-10 09:37] VITALS: BP 122/84; PULSE 86; RESP 18; TEMP 98.3
== END 2023-10-10 11:39 ==
LOC: ER 17:45
DX: R45.851 Suicidal ideations (principal); I10 Essential (primary) hypertension; E11.9 Type 2 diabetes mellitus without complications; Z20.822 Contact with and (suspected) exposure to COVID-19; Z88.0 Allergy status to penicillin; Z86.59 Personal history of other mental and behavioral disorders; Z86.73 Personal history of transient ischemic attack (TIA), and cerebral infarction without residual deficits; Z98.890 Other specified postprocedural states
CPT/HCPCS: 80053; 80305; 81003; 80307; 80329; 80320; 84703; 85025; 36415; 99285; 87426; C9803; G0480

== ENCOUNTER 2023-10-15 19:08 | Emergency (ER) | payer MEDICAID ==
[~2023-10-15] VITALS: Ht 175.3 cm; Wt 79.0 kg
[2023-10-15 19:24] VITALS: BP 138/82; PULSE 101; RESP 19; TEMP 98.4; O2SAT 98
== END 2023-10-15 19:36 | disposition left against medical advice (07) ==
LOC: ER 19:08
DX: Z53.21 Procedure and treatment not carried out due to patient leaving prior to being seen by health care provider (principal)
CPT/HCPCS: 99281; 99283

== ENCOUNTER 2023-10-16 00:35 | Emergency (ER) | payer MEDICAID ==
[~2023-10-16] VITALS: Ht 180.3 cm; Wt 83.0 kg
[2023-10-16 02:21] VITALS: O2SAT 98
[2023-10-16 03:18] LABS: CLARITY URINE CLEAR (CLEAR); COLOR URINE DARK YELLOW (YELLOW); GLUCOSE URINE NEGATIVE (NEGATIVE); KETONES URINE NEGATIVE (NEGATIVE); LEUKOCYTE ESTERASE URINE NEGATIVE (NEGATIVE); NITRITE URINE NEGATIVE (NEGATIVE); OCCULT BLOOD URINE NEGATIVE (NEGATIVE); PH URINE 5.5 (4.5-8.0); PROTEIN URINE TRACE (NEGATIVE); SPECIFIC GRAVITY URINE 1.026 (1.005-1.030)
[2023-10-16 03:36] LABS: EOSINOPHILS % 1.8 % (0.0-5.0); HEMATOCRIT. 38.7 % (36.0-48.0); HEMOGLOBIN. 13.1 g/dL (12.0-16.0); LYMPHOCYTES % 21.6 % (20.0-50.0); MEAN CORPUSCULAR HEMOGLOBIN 30.6 pg (28.0-32.0); MEAN CORPUSCULAR HGB CONC 33.8 g/dL (31.0-37.0); MEAN CORPUSCULAR VOLUME 90.5 fL (81.0-99.0); MEAN PLATELET VOLUME 7.4 fl (7.4-10.4); NEUTROPHILS % 64.6 % (40.0-76.0); PLATELET 422 x1000/uL (130-400); RED BLOOD CELL COUNT 4.28 mill/uL (4.2-5.4); RED CELL DISTRIBUTION WIDTH 15.4 % (11.6-14.6); WHITE BLOOD COUNT 7.7 x1000/uL (4.5-11.0)
[2023-10-16 03:54] LABS: ACETAMINOPHEN < 2 ug/mL (10-30); ALANINE AMINOTRANSFERASE 20 IU/L (10-49); ALBUMIN 4.3 g/dL (3.2-4.8); ASPARTATE AMINOTRANSFERASE 22 IU/L (<34); BILIRUBIN TOTAL 2.2 mg/dL (0.1-1.0); CALCIUM 9.2 mg/dL (8.7-10.4); CARBON DIOXIDE 28 mEq/L (21-32); CHLORIDE 105 mEq/L (98-107); CREATININE 0.7 mg/dL (0.6-1.0); GLUCOSE 74 mg/dL (70-105); PROTEIN TOTAL 7.2 g/dL (6.0-8.3); SODIUM 140 mEq/L (136-145); UREA NITROGEN BLOOD 10 mg/dL (9-23)
[2023-10-16 04:01] LABS: ETHANOL BLOOD < 10 mg/dL (<10)
[2023-10-16 04:39] LABS: HCG SCREEN NEGATIVE
[2023-10-16 05:10] LABS: *AMPHETAMINES SCREEN URINE PRESUMPTIVE POSITIVE (NEGATIVE)
[2023-10-16 05:11] LABS: *BARBITURATES SCREEN URINE NEGATIVE (NEGATIVE); *BENZODIAZEPINES SCREEN URINE NEGATIVE (NEGATIVE); *COCAINE SCREEN URINE PRESUMPTIVE POSITIVE (NEGATIVE)
[2023-10-16 05:12] LABS: ECSTASY MDMA SCREEN URINE NEGATIVE (NEGATIVE); METHADONE URINE SCREEN NEGATIVE (NEGATIVE); OPIATES URINE SCREEN NEGATIVE (NEGATIVE); PHENCYCLIDINE URINE SCREEN PRESUMTIVE POSITIVE (NEGATIVE)
[2023-10-16 05:13] LABS: CANNABINOID URINE SCREEN NEGATIVE (NEGATIVE)
[2023-10-16 07:10] LABS: SQUAMOUS EPITHELIAL CELL URINE FEW /lpf (RARE/1+)
[2023-10-16 07:11] LABS: RBC URINE 0-2 /hpf (0-2); WBC URINE 0-2 /hpf (0-2)
[2023-10-16 07:12] LABS: BACTERIA URINE NONE SEEN
[2023-10-16 11:02] VITALS: BP 116/61; PULSE 82; RESP 16; TEMP 98.3
[2023-10-17] MEDS ORDERED: TOPUD PO (09:14)
== END 2023-10-16 11:16 | disposition home or self-care (01) ==
LOC: ER 00:58
DX: R45.851 Suicidal ideations (principal); Z88.0 Allergy status to penicillin; Z20.822 Contact with and (suspected) exposure to COVID-19; Z91.148 Patient's other noncompliance with medication regimen for other reason; Z98.890 Other specified postprocedural states; Z86.73 Personal history of transient ischemic attack (TIA), and cerebral infarction without residual deficits; Z86.59 Personal history of other mental and behavioral disorders
CPT/HCPCS: 80053; 80305; 81003; 80307; 80329; 80320; 84703; 85025; 36415; 99283; 87426; C9803; G0480

== ENCOUNTER 2023-10-16 18:36 | Emergency (ER) | payer MEDICAID ==
[~2023-10-16] VITALS: Ht 172.7 cm; Wt 75.0 kg
[2023-10-16 18:42] VITALS: O2SAT 100
[2023-10-16 23:21] LABS: BASOPHILS % 0.8 % (0.0-2.0); EOSINOPHILS % 1.2 % (0.0-5.0); HEMATOCRIT. 37.3 % (36.0-48.0); HEMOGLOBIN. 12.5 g/dL (12.0-16.0); LYMPHOCYTES % 27.2 % (20.0-50.0); MEAN CORPUSCULAR HEMOGLOBIN 30.8 pg (28.0-32.0); MEAN CORPUSCULAR HGB CONC 33.5 g/dL (31.0-37.0); MEAN CORPUSCULAR VOLUME 91.9 fL (81.0-99.0); MEAN PLATELET VOLUME 7.6 fl (7.4-10.4); MONOCYTES % 11.9 % (2.0-8.0); NEUTROPHILS % 58.9 % (40.0-76.0); PLATELET 371 x1000/uL (130-400); RED BLOOD CELL COUNT 4.06 mill/uL (4.2-5.4); RED CELL DISTRIBUTION WIDTH 15.3 % (11.6-14.6); WHITE BLOOD COUNT 8.6 x1000/uL (4.5-11.0)
[2023-10-16 23:34] LABS: ACETAMINOPHEN < 2 ug/mL (10-30); ALANINE AMINOTRANSFERASE 19 IU/L (10-49); ALBUMIN 4.3 g/dL (3.2-4.8); ASPARTATE AMINOTRANSFERASE 20 IU/L (<34); BILIRUBIN TOTAL 1.1 mg/dL (0.1-1.0); CALCIUM 9.3 mg/dL (8.7-10.4); CARBON DIOXIDE 26 mEq/L (21-32); CHLORIDE 102 mEq/L (98-107); CREATININE 0.7 mg/dL (0.6-1.0); GLUCOSE 84 mg/dL (70-105); POTASSIUM 4.2 mEq/L (3.5-5.1); PROTEIN TOTAL 6.6 g/dL (6.0-8.3); SODIUM 135 mEq/L (136-145); UREA NITROGEN BLOOD 15 mg/dL (9-23)
[2023-10-16 23:45] LABS: ETHANOL BLOOD < 10 mg/dL (<10); HCG SCREEN NEGATIVE
[2023-10-17 00:39] LABS: CLARITY URINE CLEAR (CLEAR); COLOR URINE YELLOW (YELLOW); GLUCOSE URINE NEGATIVE (NEGATIVE); KETONES URINE NEGATIVE (NEGATIVE); LEUKOCYTE ESTERASE URINE 1+ (NEGATIVE); NITRITE URINE NEGATIVE (NEGATIVE); OCCULT BLOOD URINE NEGATIVE (NEGATIVE); PH URINE 6.5 (4.5-8.0); PROTEIN URINE NEGATIVE (NEGATIVE); SPECIFIC GRAVITY URINE 1.003 (1.005-1.030); UROBILINOGEN URINE 0.2 E.U./dL (0.2-1.0)
[2023-10-17 01:09] LABS: BACTERIA URINE TRACE; RBC URINE NONE SEEN /hpf (0-2); SQUAMOUS EPITHELIAL CELL URINE FEW /lpf (RARE/1+); WBC URINE NONE SEEN /hpf (0-2)
[2023-10-17 06:10] VITALS: BP 116/60; PULSE 86; RESP 16; TEMP 98.2
[2023-10-17 06:23] LABS: *AMPHETAMINES SCREEN URINE PRESUMPTIVE POSITIVE (NEGATIVE); *BARBITURATES SCREEN URINE NEGATIVE (NEGATIVE); *BENZODIAZEPINES SCREEN URINE NEGATIVE (NEGATIVE); *COCAINE SCREEN URINE NEGATIVE (NEGATIVE); CANNABINOID URINE SCREEN NEGATIVE (NEGATIVE); METHADONE URINE SCREEN NEGATIVE (NEGATIVE); OPIATES URINE SCREEN NEGATIVE (NEGATIVE); PHENCYCLIDINE URINE SCREEN NEGATIVE (NEGATIVE)
[2023-10-17] MEDS ORDERED: TOPUD PO (09:14)
== END 2023-10-17 09:39 | disposition home or self-care (01) ==
LOC: ER 18:36
DX: U07.1 COVID-19 (principal); R45.851 Suicidal ideations; F41.9 Anxiety disorder, unspecified; F31.9 Bipolar disorder, unspecified; E11.9 Type 2 diabetes mellitus without complications; I10 Essential (primary) hypertension; F20.9 Schizophrenia, unspecified; Z86.73 Personal history of transient ischemic attack (TIA), and cerebral infarction without residual deficits; Z88.0 Allergy status to penicillin; Z88.8 Allergy status to other drugs, medicaments and biological substances
CPT/HCPCS: 80053; 80305; 81003; 80307; 80329; 80320; 84703; 85025; 36415; 99283; 87426; 81025; C9803; 99284; G0480

== ENCOUNTER 2023-10-17 12:23 | Emergency (ER) | payer MEDICAID ==
[~2023-10-17] VITALS: Ht 177.8 cm; Wt 81.0 kg
[~2023-10-17 12:23] MED LIST changes: +TOPUD PO
[2023-10-17 12:24] VITALS: BP 121/74; PULSE 89; RESP 18; TEMP 98; O2SAT 100
== END 2023-10-17 13:01 | disposition home or self-care (01) ==
LOC: ER 12:23
DX: U07.1 COVID-19 (principal); R45.851 Suicidal ideations; I10 Essential (primary) hypertension; E11.9 Type 2 diabetes mellitus without complications; F17.290 Nicotine dependence, other tobacco product, uncomplicated; F15.10 Other stimulant abuse, uncomplicated; Z88.0 Allergy status to penicillin; Z79.899 Other long term (current) drug therapy; Z98.890 Other specified postprocedural states; Z86.73 Personal history of transient ischemic attack (TIA), and cerebral infarction without residual deficits
CPT/HCPCS: 99283; 99406

== ENCOUNTER 2023-10-26 20:04 | Emergency (ER) | payer MEDICAID ==
[~2023-10-26] VITALS: Ht 170.2 cm; Wt 70.0 kg
[2023-10-26 20:06] VITALS: O2SAT 100
[2023-10-26 20:52] LABS: CLARITY URINE CLEAR (CLEAR); COLOR URINE YELLOW (YELLOW); GLUCOSE URINE NEGATIVE (NEGATIVE); KETONES URINE NEGATIVE (NEGATIVE); OCCULT BLOOD URINE NEGATIVE (NEGATIVE); PH URINE 6.5 (4.5-8.0); PROTEIN URINE NEGATIVE (NEGATIVE); SPECIFIC GRAVITY URINE 1.013 (1.005-1.030)
[2023-10-26 20:53] LABS: LEUKOCYTE ESTERASE URINE TRACE (NEGATIVE); NITRITE URINE NEGATIVE (NEGATIVE); UROBILINOGEN URINE 0.2 E.U./dL (0.2-1.0)
[2023-10-26 21:02] LABS: BACTERIA URINE TRACE; RBC URINE 0-2 /hpf (0-2); SQUAMOUS EPITHELIAL CELL URINE FEW /lpf (RARE/1+); WBC URINE 0-2 /hpf (0-2)
[2023-10-26 23:05] LABS: BASOPHILS % 0.8 % (0.0-2.0); EOSINOPHILS % 0.5 % (0.0-5.0); HEMATOCRIT. 39.8 % (36.0-48.0); HEMOGLOBIN. 13.1 g/dL (12.0-16.0); LYMPHOCYTES % 32.4 % (20.0-50.0); MEAN CORPUSCULAR HEMOGLOBIN 29.7 pg (28.0-32.0); MEAN CORPUSCULAR HGB CONC 32.8 g/dL (31.0-37.0); MEAN CORPUSCULAR VOLUME 90.7 fL (81.0-99.0); MEAN PLATELET VOLUME 7.2 fl (7.4-10.4); NEUTROPHILS % 59.3 % (40.0-76.0); PLATELET 428 x1000/uL (130-400); RED BLOOD CELL COUNT 4.39 mill/uL (4.2-5.4); WHITE BLOOD COUNT 8.3 x1000/uL (4.5-11.0)
[2023-10-26 23:21] LABS: ACETAMINOPHEN < 2 ug/mL (10-30); ALANINE AMINOTRANSFERASE 12 IU/L (10-49); ASPARTATE AMINOTRANSFERASE 12 IU/L (<34); BILIRUBIN TOTAL 0.4 mg/dL (0.1-1.0); CALCIUM 9.3 mg/dL (8.7-10.4); CARBON DIOXIDE 28 mEq/L (21-32); CHLORIDE 105 mEq/L (98-107); CREATININE 0.6 mg/dL (0.6-1.0); GLUCOSE 89 mg/dL (70-105); PROTEIN TOTAL 6.9 g/dL (6.0-8.3); SODIUM 142 mEq/L (136-145); THYROID STIMULATING HORMONE 3.86 uIU/mL (0.55-4.78); UREA NITROGEN BLOOD 14 mg/dL (9-23)
[2023-10-26 23:22] LABS: ETHANOL BLOOD < 10 mg/dL (<10)
[2023-10-27 09:30] VITALS: BP 122/59; PULSE 82; RESP 17; TEMP 98.2
== END 2023-10-27 12:37 | disposition home or self-care (01) ==
LOC: ER 20:04
DX: R45.851 Suicidal ideations (principal); F15.10 Other stimulant abuse, uncomplicated; I10 Essential (primary) hypertension; E11.9 Type 2 diabetes mellitus without complications; Z86.59 Personal history of other mental and behavioral disorders; Z86.73 Personal history of transient ischemic attack (TIA), and cerebral infarction without residual deficits; Z98.890 Other specified postprocedural states; Z88.0 Allergy status to penicillin; Z79.899 Other long term (current) drug therapy
CPT/HCPCS: 36415; 80053; 80307; 80320; 80329; 81003; 81025; 84443; 85025; 99283; G0480

== ENCOUNTER 2023-10-30 20:27 | Emergency (ER) | payer MEDICAID ==
[~2023-10-30] VITALS: Ht 170.2 cm; Wt 60.0 kg
[2023-10-30 20:40] VITALS: TEMP 98.2; O2SAT 97
[2023-10-30 21:26] LABS: HEMATOCRIT. 33.8 % (36.0-48.0); HEMOGLOBIN. 11.1 g/dL (12.0-16.0); LYMPHOCYTES % 25.8 % (20.0-50.0); MEAN CORPUSCULAR HEMOGLOBIN 29.3 pg (28.0-32.0); MEAN CORPUSCULAR HGB CONC 32.8 g/dL (31.0-37.0); MEAN CORPUSCULAR VOLUME 89.4 fL (81.0-99.0); MEAN PLATELET VOLUME 7.5 fl (7.4-10.4); MONOCYTES % 9.3 % (2.0-8.0); NEUTROPHILS % 62.9 % (40.0-76.0); PLATELET 379 x1000/uL (130-400); RED BLOOD CELL COUNT 3.79 mill/uL (4.2-5.4); RED CELL DISTRIBUTION WIDTH 15.2 % (11.6-14.6); WHITE BLOOD COUNT 7.9 x1000/uL (4.5-11.0)
[2023-10-30 21:40] LABS: ACETAMINOPHEN < 2 ug/mL (10-30); ALANINE AMINOTRANSFERASE 16 IU/L (10-49); ALBUMIN 3.9 g/dL (3.2-4.8); ASPARTATE AMINOTRANSFERASE 17 IU/L (<34); BILIRUBIN TOTAL 0.6 mg/dL (0.1-1.0); CALCIUM 8.5 mg/dL (8.7-10.4); CARBON DIOXIDE 24 mEq/L (21-32); CHLORIDE 111 mEq/L (98-107); CREATININE 0.7 mg/dL (0.6-1.0); ETHANOL BLOOD 31 mg/dL (<10); GLUCOSE 99 mg/dL (70-105); PROTEIN TOTAL 6.4 g/dL (6.0-8.3); SODIUM 146 mEq/L (136-145); UREA NITROGEN BLOOD 20 mg/dL (9-23)
[2023-10-31 06:04] VITALS: BP 130/75; PULSE 95; RESP 16
[2023-10-31] MEDS ORDERED: OLANZAPINE 5MG TABLET ODT PO SCH (10:15)
[2023-10-31 11:17] LABS: HCG SCREEN NEGATIVE
== END 2023-10-31 12:31 | disposition home or self-care (01) ==
LOC: ER 20:27
DX: R45.851 Suicidal ideations (principal); I10 Essential (primary) hypertension; Z88.0 Allergy status to penicillin; Z20.822 Contact with and (suspected) exposure to COVID-19; Z98.890 Other specified postprocedural states; Z86.59 Personal history of other mental and behavioral disorders
CPT/HCPCS: 80053; 81025; 80307; 80329; 80320; 85025; 36415; 99283; 84703; 87426; C9803; G0480

== ENCOUNTER 2023-11-01 15:54 | Emergency (ER) | payer MEDICAID ==
[~2023-11-01] VITALS: Ht 170.2 cm; Wt 91.0 kg
[2023-11-01 16:07] VITALS: O2SAT 98
[2023-11-01 17:07] LABS: CLARITY URINE CLOUDY (CLEAR); COLOR URINE YELLOW (YELLOW); GLUCOSE URINE NEGATIVE (NEGATIVE); KETONES URINE NEGATIVE (NEGATIVE); LEUKOCYTE ESTERASE URINE NEGATIVE (NEGATIVE); NITRITE URINE NEGATIVE (NEGATIVE); OCCULT BLOOD URINE NEGATIVE (NEGATIVE); PROTEIN URINE NEGATIVE (NEGATIVE); SPECIFIC GRAVITY URINE 1.025 (1.005-1.030)
[2023-11-01 17:30] LABS: BACTERIA URINE TRACE; RBC URINE 0-2 /hpf (0-2); SQUAMOUS EPITHELIAL CELL URINE 3+ /lpf (RARE/1+); WBC URINE 0-2 /hpf (0-2)
[2023-11-01 17:45] LABS: BASOPHILS % 0.6 % (0.0-2.0); EOSINOPHILS % 0.9 % (0.0-5.0); HEMATOCRIT. 35.2 % (36.0-48.0); HEMOGLOBIN. 11.7 g/dL (12.0-16.0); LYMPHOCYTES % 26.1 % (20.0-50.0); MEAN CORPUSCULAR HEMOGLOBIN 29.7 pg (28.0-32.0); MEAN CORPUSCULAR HGB CONC 33.3 g/dL (31.0-37.0); MEAN PLATELET VOLUME 7.3 fl (7.4-10.4); MONOCYTES % 6.2 % (2.0-8.0); NEUTROPHILS % 66.2 % (40.0-76.0); PLATELET 418 x1000/uL (130-400); RED BLOOD CELL COUNT 3.95 mill/uL (4.2-5.4); RED CELL DISTRIBUTION WIDTH 15.2 % (11.6-14.6); WHITE BLOOD COUNT 8.6 x1000/uL (4.5-11.0)
[2023-11-01 17:47] LABS: *AMPHETAMINES SCREEN URINE PRESUMPTIVE POSITIVE (NEGATIVE); *BARBITURATES SCREEN URINE NEGATIVE (NEGATIVE); *BENZODIAZEPINES SCREEN URINE NEGATIVE (NEGATIVE); *COCAINE SCREEN URINE PRESUMPTIVE POSITIVE (NEGATIVE); CANNABINOID URINE SCREEN NEGATIVE (NEGATIVE); ECSTASY MDMA SCREEN URINE NEGATIVE (NEGATIVE); METHADONE URINE SCREEN Neg (NEGATIVE); OPIATES URINE SCREEN NEGATIVE (NEGATIVE); PHENCYCLIDINE URINE SCREEN NEGATIVE (NEGATIVE)
[2023-11-01 18:02] LABS: ACETAMINOPHEN < 2 ug/mL (10-30); ALANINE AMINOTRANSFERASE 13 IU/L (10-49); ALBUMIN 3.7 g/dL (3.2-4.8); ASPARTATE AMINOTRANSFERASE 13 IU/L (<34); BILIRUBIN TOTAL 0.4 mg/dL (0.1-1.0); CARBON DIOXIDE 28 mEq/L (21-32); CHLORIDE 105 mEq/L (98-107); CREATININE 0.5 mg/dL (0.6-1.0); GLUCOSE 106 mg/dL (70-105); HCG SCREEN NEGATIVE; POTASSIUM 3.5 mEq/L (3.5-5.1); PROTEIN TOTAL 6.4 g/dL (6.0-8.3); SODIUM 141 mEq/L (136-145); UREA NITROGEN BLOOD 12 mg/dL (9-23)
[2023-11-01 18:05] LABS: ETHANOL BLOOD < 10 mg/dL (<10)
[2023-11-02] MEDS ORDERED: RISPERIDONE 1MG TABLET PO SCH (10:15)
[2023-11-02 19:35] VITALS: BP 104/74; PULSE 91; RESP 20; TEMP 98.6
== END 2023-11-02 20:04 ==
LOC: ER 15:54
DX: R45.851 Suicidal ideations (principal); F10.20 Alcohol dependence, uncomplicated; F41.9 Anxiety disorder, unspecified; F31.9 Bipolar disorder, unspecified; E11.9 Type 2 diabetes mellitus without complications; I10 Essential (primary) hypertension; F20.9 Schizophrenia, unspecified; Z86.73 Personal history of transient ischemic attack (TIA), and cerebral infarction without residual deficits; Z79.899 Other long term (current) drug therapy; Z20.822 Contact with and (suspected) exposure to COVID-19
CPT/HCPCS: 80053; 80305; 81003; 81025; 80307; 80329; 80320; 84703; 85025; 36415; 99285; 87426; C9803; Z7610; G0480

== ENCOUNTER 2023-11-11 20:00 | Emergency (ER) | payer MEDICAID ==
[~2023-11-11] VITALS: Ht 180.3 cm; Wt 82.0 kg
[2023-11-11 20:22] VITALS: O2SAT 98
[2023-11-11 22:47] LABS: BASOPHILS % 0.8 % (0.0-2.0); EOSINOPHILS % 0.5 % (0.0-5.0); HEMOGLOBIN. 11.9 g/dL (12.0-16.0); LYMPHOCYTES % 32.9 % (20.0-50.0); MEAN CORPUSCULAR HEMOGLOBIN 29.1 pg (28.0-32.0); MEAN CORPUSCULAR HGB CONC 32.2 g/dL (31.0-37.0); MEAN CORPUSCULAR VOLUME 90.4 fL (81.0-99.0); MEAN PLATELET VOLUME 7.2 fl (7.4-10.4); MONOCYTES % 10.4 % (2.0-8.0); NEUTROPHILS % 55.4 % (40.0-76.0); PLATELET 400 x1000/uL (130-400); RED BLOOD CELL COUNT 4.09 mill/uL (4.2-5.4); RED CELL DISTRIBUTION WIDTH 14.8 % (11.6-14.6); WHITE BLOOD COUNT 8.3 x1000/uL (4.5-11.0)
[2023-11-11 22:56] LABS: HCG SCREEN NEGATIVE
[2023-11-11 23:04] LABS: ACETAMINOPHEN < 2 ug/mL (10-30); ALANINE AMINOTRANSFERASE 17 IU/L (10-49); ALBUMIN 3.8 g/dL (3.2-4.8); ASPARTATE AMINOTRANSFERASE 17 IU/L (<34); BILIRUBIN TOTAL 0.6 mg/dL (0.1-1.0); CALCIUM 8.7 mg/dL (8.7-10.4); CARBON DIOXIDE 28 mEq/L (21-32); CHLORIDE 109 mEq/L (98-107); CREATININE 0.6 mg/dL (0.6-1.0); GLUCOSE 79 mg/dL (70-105); POTASSIUM 3.9 mEq/L (3.5-5.1); PROTEIN TOTAL 6.8 g/dL (6.0-8.3); SODIUM 142 mEq/L (136-145); UREA NITROGEN BLOOD 20 mg/dL (9-23)
[2023-11-11 23:05] LABS: ETHANOL BLOOD < 10 mg/dL (<10)
[2023-11-12 12:01] VITALS: BP 128/84; PULSE 91; RESP 18; TEMP 98.8
[2023-11-12 12:38] LABS: CLARITY URINE CLEAR (CLEAR); COLOR URINE YELLOW (YELLOW); GLUCOSE URINE NEGATIVE (NEGATIVE); KETONES URINE NEGATIVE (NEGATIVE); LEUKOCYTE ESTERASE URINE NEGATIVE (NEGATIVE); NITRITE URINE NEGATIVE (NEGATIVE); OCCULT BLOOD URINE NEGATIVE (NEGATIVE); PH URINE 7.5 (4.5-8.0); PROTEIN URINE NEGATIVE (NEGATIVE); SPECIFIC GRAVITY URINE 1.009 (1.005-1.030); UROBILINOGEN URINE 0.2 E.U./dL (0.2-1.0)
[2023-11-12 14:08] LABS: *AMPHETAMINES SCREEN URINE NEGATIVE (NEGATIVE); *BARBITURATES SCREEN URINE NEGATIVE (NEGATIVE); *BENZODIAZEPINES SCREEN URINE NEGATIVE (NEGATIVE); *COCAINE SCREEN URINE PRESUMPTIVE POSITIVE (NEGATIVE); CANNABINOID URINE SCREEN NEGATIVE (NEGATIVE); ECSTASY MDMA SCREEN URINE NEGATIVE (NEGATIVE); METHADONE URINE SCREEN Neg (NEGATIVE); OPIATES URINE SCREEN NEGATIVE (NEGATIVE); PHENCYCLIDINE URINE SCREEN NEGATIVE (NEGATIVE)
== END 2023-11-12 12:00 | disposition home or self-care (01) ==
LOC: ER 20:00
DX: R45.851 Suicidal ideations (principal); F41.9 Anxiety disorder, unspecified; F31.9 Bipolar disorder, unspecified; E11.9 Type 2 diabetes mellitus without complications; I10 Essential (primary) hypertension; F10.229 Alcohol dependence with intoxication, unspecified; F20.9 Schizophrenia, unspecified; F14.10 Cocaine abuse, uncomplicated; F15.10 Other stimulant abuse, uncomplicated; Z86.73 Personal history of transient ischemic attack (TIA), and cerebral infarction without residual deficits; Y90.0 Blood alcohol level of less than 20 mg/100 ml
CPT/HCPCS: 36415; 80053; 80305; 80307; 80320; 80329; 81003; 84703; 85025; 99283; G0480

== ENCOUNTER 2023-11-13 01:11 | Emergency (ER) | payer MEDICAID ==
[~2023-11-13] VITALS: Ht 180.3 cm; Wt 81.6 kg
[2023-11-13 01:30] VITALS: O2SAT 98
[2023-11-13 02:59] LABS: BASOPHILS % 0.8 % (0.0-2.0); EOSINOPHILS % 0.3 % (0.0-5.0); HEMATOCRIT. 37.5 % (36.0-48.0); HEMOGLOBIN. 12.3 g/dL (12.0-16.0); LYMPHOCYTES % 18.6 % (20.0-50.0); MEAN CORPUSCULAR HEMOGLOBIN 29.2 pg (28.0-32.0); MEAN CORPUSCULAR HGB CONC 32.8 g/dL (31.0-37.0); MEAN CORPUSCULAR VOLUME 89.2 fL (81.0-99.0); MONOCYTES % 11.5 % (2.0-8.0); NEUTROPHILS % 68.8 % (40.0-76.0); PLATELET 405 x1000/uL (130-400); RED CELL DISTRIBUTION WIDTH 15.1 % (11.6-14.6); WHITE BLOOD COUNT 9.7 x1000/uL (4.5-11.0)
[2023-11-13 03:15] LABS: HCG SCREEN NEGATIVE
[2023-11-13 03:18] LABS: ALANINE AMINOTRANSFERASE 15 IU/L (10-49); ALBUMIN 4.1 g/dL (3.2-4.8); ASPARTATE AMINOTRANSFERASE 22 IU/L (<34); BILIRUBIN TOTAL 0.4 mg/dL (0.1-1.0); CALCIUM 9.3 mg/dL (8.7-10.4); CARBON DIOXIDE 29 mEq/L (21-32); CHLORIDE 105 mEq/L (98-107); CREATININE 0.6 mg/dL (0.6-1.0); GLUCOSE 81 mg/dL (70-105); POTASSIUM 4.1 mEq/L (3.5-5.1); PROTEIN TOTAL 6.6 g/dL (6.0-8.3); SODIUM 139 mEq/L (136-145); UREA NITROGEN BLOOD 15 mg/dL (9-23)
[2023-11-13 03:26] LABS: ETHANOL BLOOD < 10 mg/dL (<10)
[2023-11-13 03:31] LABS: CLARITY URINE TURBID (CLEAR); COLOR URINE YELLOW (YELLOW); GLUCOSE URINE NEGATIVE (NEGATIVE); KETONES URINE TRACE (NEGATIVE); LEUKOCYTE ESTERASE URINE 1+ (NEGATIVE); NITRITE URINE NEGATIVE (NEGATIVE); OCCULT BLOOD URINE NEGATIVE (NEGATIVE); PH URINE 6.5 (4.5-8.0); PROTEIN URINE NEGATIVE (NEGATIVE); SPECIFIC GRAVITY URINE 1.026 (1.005-1.030)
[2023-11-13 05:34] LABS: RBC URINE 0-2 /hpf (0-2); SQUAMOUS EPITHELIAL CELL URINE FEW /lpf (RARE/1+); WBC URINE 0-2 /hpf (0-2)
[2023-11-13 05:35] LABS: BACTERIA URINE 1+; CALCIUM OXALATE CRYSTALS URINE 1+ /lpf
[2023-11-13 10:19] LABS: *AMPHETAMINES SCREEN URINE PRESUMPTIVE POSITIVE (NEGATIVE); *BARBITURATES SCREEN URINE NEGATIVE (NEGATIVE); *BENZODIAZEPINES SCREEN URINE NEGATIVE (NEGATIVE); *COCAINE SCREEN URINE PRESUMPTIVE POSITIVE (NEGATIVE); ECSTASY MDMA SCREEN URINE NEGATIVE (NEGATIVE); METHADONE URINE SCREEN Neg (NEGATIVE); OPIATES URINE SCREEN NEGATIVE (NEGATIVE); PHENCYCLIDINE URINE SCREEN NEGATIVE (NEGATIVE)
[2023-11-13 11:23] VITALS: BP 131/80; PULSE 83; RESP 16; TEMP 98.4
== END 2023-11-13 11:31 | disposition home or self-care (01) ==
LOC: ER 01:11
DX: R45.851 Suicidal ideations (principal); F14.10 Cocaine abuse, uncomplicated; F15.10 Other stimulant abuse, uncomplicated; I10 Essential (primary) hypertension; E11.9 Type 2 diabetes mellitus without complications; Z20.822 Contact with and (suspected) exposure to COVID-19; Z88.0 Allergy status to penicillin; Z98.890 Other specified postprocedural states
CPT/HCPCS: 80053; 80305; 81003; 80307; 80329; 80320; 84703; 85025; 36415; 99283; 87426; C9803; G0480

== ENCOUNTER 2023-11-20 23:08 | Emergency (ER) | payer MEDICAID ==
[~2023-11-20] VITALS: Ht 175.3 cm; Wt 78.0 kg
[2023-11-20 23:13] VITALS: BP 162/90; PULSE 96; RESP 16; TEMP 98.4; O2SAT 98
== END 2023-11-21 05:58 | disposition home or self-care (01) ==
LOC: ER 23:39
DX: F41.9 Anxiety disorder, unspecified (principal); F20.9 Schizophrenia, unspecified; F31.9 Bipolar disorder, unspecified; E11.9 Type 2 diabetes mellitus without complications; I10 Essential (primary) hypertension; F14.90 Cocaine use, unspecified, uncomplicated; F15.90 Other stimulant use, unspecified, uncomplicated; F10.20 Alcohol dependence, uncomplicated; Z88.0 Allergy status to penicillin; Z86.73 Personal history of transient ischemic attack (TIA), and cerebral infarction without residual deficits; Z88.8 Allergy status to other drugs, medicaments and biological substances; Y90.9 Presence of alcohol in blood, level not specified
CPT/HCPCS: 99283

== ENCOUNTER 2023-11-24 03:57 | Emergency (ER) | payer MEDICAID ==
[~2023-11-24] VITALS: Ht 167.6 cm; Wt 70.0 kg
[2023-11-24 04:15] VITALS: TEMP 98.4; O2SAT 99
[2023-11-24 04:33] LABS: BASOPHILS % 0.7 % (0.0-2.0); EOSINOPHILS % 0.1 % (0.0-5.0); HEMATOCRIT. 36.9 % (36.0-48.0); HEMOGLOBIN. 12.4 g/dL (12.0-16.0); LYMPHOCYTES % 9.8 % (20.0-50.0); MEAN CORPUSCULAR HEMOGLOBIN 29.7 pg (28.0-32.0); MEAN CORPUSCULAR HGB CONC 33.8 g/dL (31.0-37.0); MEAN PLATELET VOLUME 7.6 fl (7.4-10.4); MONOCYTES % 7.1 % (2.0-8.0); NEUTROPHILS % 82.3 % (40.0-76.0); PLATELET 396 x1000/uL (130-400); RED BLOOD CELL COUNT 4.19 mill/uL (4.2-5.4); RED CELL DISTRIBUTION WIDTH 14.9 % (11.6-14.6); WHITE BLOOD COUNT 16.5 x1000/uL (4.5-11.0)
[2023-11-24 04:47] LABS: ACETAMINOPHEN < 2 ug/mL (10-30); ALANINE AMINOTRANSFERASE 9 IU/L (10-49); ALBUMIN 4.1 g/dL (3.2-4.8); ASPARTATE AMINOTRANSFERASE 10 IU/L (<34); BILIRUBIN TOTAL 0.9 mg/dL (0.1-1.0); CALCIUM 9.1 mg/dL (8.7-10.4); CARBON DIOXIDE 22 mEq/L (21-32); CHLORIDE 106 mEq/L (98-107); CREATININE 0.5 mg/dL (0.6-1.0); GLUCOSE 79 mg/dL (70-105); POTASSIUM 3.8 mEq/L (3.5-5.1); PROTEIN TOTAL 7.7 g/dL (6.0-8.3); SODIUM 138 mEq/L (136-145); UREA NITROGEN BLOOD 14 mg/dL (9-23)
[2023-11-24 04:49] LABS: ETHANOL BLOOD < 10 mg/dL (<10)
[2023-11-24 04:52] LABS: HCG SCREEN NEGATIVE
[2023-11-24 11:31] VITALS: BP 135/71; PULSE 66; RESP 15
== END 2023-11-24 11:33 | disposition home or self-care (01) ==
LOC: ER 03:57
DX: R45.851 Suicidal ideations (principal); F15.10 Other stimulant abuse, uncomplicated; F14.10 Cocaine abuse, uncomplicated; E11.9 Type 2 diabetes mellitus without complications; Z88.0 Allergy status to penicillin; Z98.890 Other specified postprocedural states; Z86.73 Personal history of transient ischemic attack (TIA), and cerebral infarction without residual deficits; Z86.59 Personal history of other mental and behavioral disorders
CPT/HCPCS: 36415; 80053; 80307; 80320; 80329; 84703; 85025; 99283; 99284; G0480

== ENCOUNTER 2023-12-24 04:14 | Emergency (ER) | payer MEDICAID ==
[~2023-12-24] VITALS: Ht 180.3 cm; Wt 82.0 kg
[2023-12-24 05:00] VITALS: O2SAT 100
[2023-12-24 05:38] LABS: BASOPHILS % 0.7 % (0.0-2.0); HEMATOCRIT. 41.1 % (36.0-48.0); HEMOGLOBIN. 13.9 g/dL (12.0-16.0); LYMPHOCYTES % 26.5 % (20.0-50.0); MEAN CORPUSCULAR HEMOGLOBIN 30.4 pg (28.0-32.0); MEAN CORPUSCULAR HGB CONC 33.9 g/dL (31.0-37.0); MEAN CORPUSCULAR VOLUME 89.7 fL (81.0-99.0); MEAN PLATELET VOLUME 7.9 fl (7.4-10.4); NEUTROPHILS % 62.8 % (40.0-76.0); PLATELET 395 x1000/uL (130-400); RED BLOOD CELL COUNT 4.59 mill/uL (4.2-5.4); RED CELL DISTRIBUTION WIDTH 15.1 % (11.6-14.6); WHITE BLOOD COUNT 9.6 x1000/uL (4.5-11.0)
[2023-12-24 05:40] VITALS: BP 109/74; PULSE 108; RESP 16; TEMP 98.2
[2023-12-24 05:59] LABS: ACETAMINOPHEN < 2 ug/mL (10-30); CALCIUM 9.7 mg/dL (8.7-10.4); CARBON DIOXIDE 23 mEq/L (21-32); CHLORIDE 101 mEq/L (98-107); CREATININE 0.8 mg/dL (0.6-1.0); GLUCOSE 96 mg/dL (70-105); POTASSIUM 4.1 mEq/L (3.5-5.1); SODIUM 136 mEq/L (136-145); UREA NITROGEN BLOOD 12 mg/dL (9-23)
[2023-12-24 06:16] LABS: HCG SCREEN NEGATIVE
[2023-12-24 06:18] LABS: ETHANOL BLOOD < 10 mg/dL (<10)
[2023-12-24] MEDS ORDERED: SERTRALINE HCL 50MG TABLET PO SCH (10:00)
[2023-12-24 11:30] LABS: *AMPHETAMINES SCREEN URINE PRESUMPTIVE POSITIVE (NEGATIVE); *BARBITURATES SCREEN URINE NEGATIVE (NEGATIVE); *BENZODIAZEPINES SCREEN URINE NEGATIVE (NEGATIVE); *COCAINE SCREEN URINE PRESUMPTIVE POSITIVE (NEGATIVE); CANNABINOID URINE SCREEN NEGATIVE (NEGATIVE); ECSTASY MDMA SCREEN URINE NEGATIVE (NEGATIVE); METHADONE URINE SCREEN Neg (NEGATIVE); OPIATES URINE SCREEN NEGATIVE (NEGATIVE); PHENCYCLIDINE URINE SCREEN NEGATIVE (NEGATIVE)
[2023-12-24] MEDS ORDERED: RISPERIDONE 1MG TABLET PO SCH (21:00)
== END 2023-12-24 13:15 | disposition home or self-care (01) ==
LOC: ER 04:23
DX: R45.851 Suicidal ideations (principal); F14.10 Cocaine abuse, uncomplicated; F15.10 Other stimulant abuse, uncomplicated; Z76.5 Malingerer [conscious simulation]; Z79.899 Other long term (current) drug therapy; Z20.822 Contact with and (suspected) exposure to COVID-19
CPT/HCPCS: 36415; 80048; 80305; 80307; 80320; 80329; 84703; 85025; 87426; 99283; G0480

== ENCOUNTER 2023-12-24 19:04 | Emergency (ER) | payer MEDICAID ==
[~2023-12-24] VITALS: Ht 177.8 cm; Wt 73.0 kg
[2023-12-24 19:17] VITALS: O2SAT 95
[2023-12-25 06:14] VITALS: BP 155/86; PULSE 87; RESP 18; TEMP 98.2
== END 2023-12-25 06:15 | disposition home or self-care (01) ==
LOC: ER 19:04
DX: F20.9 Schizophrenia, unspecified (principal); F31.9 Bipolar disorder, unspecified; F14.10 Cocaine abuse, uncomplicated; F15.10 Other stimulant abuse, uncomplicated; Z59.00 Homelessness unspecified; Z86.73 Personal history of transient ischemic attack (TIA), and cerebral infarction without residual deficits
CPT/HCPCS: 99285

== ENCOUNTER 2023-12-31 20:57 | Emergency (ER) | payer MEDICAID ==
[~2023-12-31] VITALS: Ht 172.7 cm; Wt 82.0 kg
[2023-12-31 21:05] VITALS: O2SAT 98
[2023-12-31 23:58] LABS: BASOPHILS % 0.5 % (0.0-2.0); EOSINOPHILS % 0.5 % (0.0-5.0); HEMATOCRIT. 43.1 % (36.0-48.0); HEMOGLOBIN. 14.4 g/dL (12.0-16.0); LYMPHOCYTES % 14.1 % (20.0-50.0); MEAN CORPUSCULAR HGB CONC 33.4 g/dL (31.0-37.0); MEAN CORPUSCULAR VOLUME 89.8 fL (81.0-99.0); MEAN PLATELET VOLUME 7.8 fl (7.4-10.4); MONOCYTES % 5.2 % (2.0-8.0); NEUTROPHILS % 79.7 % (40.0-76.0); PLATELET 428 x1000/uL (130-400); RED CELL DISTRIBUTION WIDTH 14.5 % (11.6-14.6); WHITE BLOOD COUNT 12.6 x1000/uL (4.5-11.0)
[2024-01-01 00:15] LABS: HCG SCREEN NEGATIVE
[2024-01-01 00:32] LABS: ACETAMINOPHEN < 2 ug/mL (10-30); ALANINE AMINOTRANSFERASE 14 IU/L (10-49); ALBUMIN 4.7 g/dL (3.2-4.8); ASPARTATE AMINOTRANSFERASE 19 IU/L (<34); BILIRUBIN TOTAL 0.6 mg/dL (0.1-1.0); CALCIUM 9.8 mg/dL (8.7-10.4); CARBON DIOXIDE 23 mEq/L (21-32); CHLORIDE 105 mEq/L (98-107); CREATININE 0.8 mg/dL (0.6-1.0); GLUCOSE 91 mg/dL (70-105); POTASSIUM 3.8 mEq/L (3.5-5.1); PROTEIN TOTAL 7.8 g/dL (6.0-8.3); SODIUM 139 mEq/L (136-145); UREA NITROGEN BLOOD 19 mg/dL (9-23)
[2024-01-01 00:41] LABS: ETHANOL BLOOD < 10 mg/dL (<10)
[2024-01-01 08:21] VITALS: BP 146/88; PULSE 83; RESP 16; TEMP 98.1
== END 2024-01-01 12:48 | disposition home or self-care (01) ==
LOC: ER 20:57
DX: F31.9 Bipolar disorder, unspecified (principal); F20.9 Schizophrenia, unspecified; Z86.73 Personal history of transient ischemic attack (TIA), and cerebral infarction without residual deficits; Z88.0 Allergy status to penicillin; Z88.8 Allergy status to other drugs, medicaments and biological substances
CPT/HCPCS: 36415; 80053; 80307; 80320; 80329; 84703; 85025; 99283; G0480

== ENCOUNTER 2024-02-11 22:05 | Emergency (ER) | payer MEDICAID ==
[~2024-02-11] VITALS: Ht 167.6 cm; Wt 68.0 kg
[2024-02-11 22:19] VITALS: BP 156/94; PULSE 76; RESP 18; TEMP 97.9; O2SAT 98
[2024-02-11] MEDS: FAMOTIDINE 20MG/2ML VIAL IV STA (23:38)
[2024-02-11] MEDS: SODIUM CHLORIDE 0.9% 1,000 ML IV ONE (23:38)
[2024-02-11 23:52] LABS: BASOPHILS % 0.7 % (0.0-2.0); EOSINOPHILS % 2.3 % (0.0-5.0); HEMATOCRIT. 40.8 % (36.0-48.0); HEMOGLOBIN. 14.1 g/dL (12.0-16.0); LYMPHOCYTES % 37.9 % (20.0-50.0); MEAN CORPUSCULAR HEMOGLOBIN 30.6 pg (28.0-32.0); MEAN CORPUSCULAR HGB CONC 34.5 g/dL (31.0-37.0); MEAN CORPUSCULAR VOLUME 88.7 fL (81.0-99.0); MEAN PLATELET VOLUME 8.6 fl (7.4-10.4); MONOCYTES % 6.9 % (2.0-8.0); NEUTROPHILS % 52.2 % (40.0-76.0); PLATELET 418 x1000/uL (130-400); RED CELL DISTRIBUTION WIDTH 15.7 % (11.6-14.6); WHITE BLOOD COUNT 8.6 x1000/uL (4.5-11.0)
[2024-02-12 00:13] LABS: ALANINE AMINOTRANSFERASE 18 IU/L (10-49); ALBUMIN 5.1 g/dL (3.2-4.8); ASPARTATE AMINOTRANSFERASE 34 IU/L (<34); BILIRUBIN TOTAL 2.6 mg/dL (0.1-1.0); CALCIUM 9.5 mg/dL (8.7-10.4); CARBON DIOXIDE 22 mEq/L (21-32); CHLORIDE 106 mEq/L (98-107); CREATININE 0.7 mg/dL (0.6-1.0); ETHANOL BLOOD 124 mg/dL (<10); GLUCOSE 53 mg/dL (70-105); POTASSIUM 4.2 mEq/L (3.5-5.1); PROTEIN TOTAL 8.6 g/dL (6.0-8.3); SODIUM 139 mEq/L (136-145); UREA NITROGEN BLOOD 13 mg/dL (9-23)
[2024-02-12 00:22] LABS: HCG SCREEN NEGATIVE
[2024-02-12] MEDS ORDERED: FAMO-135 MT (00:44)
== END 2024-02-12 01:01 | disposition home or self-care (01) ==
LOC: ER 22:05
DX: R10.13 Epigastric pain (principal); E16.2 Hypoglycemia, unspecified; F31.9 Bipolar disorder, unspecified; F20.9 Schizophrenia, unspecified; Z86.73 Personal history of transient ischemic attack (TIA), and cerebral infarction without residual deficits; Z79.899 Other long term (current) drug therapy; F17.200 Nicotine dependence, unspecified, uncomplicated
CPT/HCPCS: 80053; 80320; 84703; 83690; 85025; 36415; 96361; 96374; 99283; J3490; J7030; G0480

== ENCOUNTER 2024-02-14 06:40 | Emergency (ER) | payer MEDICAID ==
[~2024-02-14] VITALS: Ht 157.5 cm; Wt 64.0 kg
[~2024-02-14 06:40] MED LIST changes: +FAMO-135 MT
[2024-02-14 06:49] VITALS: O2SAT 97
[2024-02-14 09:37] LABS: HCG SCREEN NEGATIVE
[2024-02-14 09:46] LABS: BASOPHILS % 0.5 % (0.0-2.0); EOSINOPHILS % 1.4 % (0.0-5.0); HEMATOCRIT. 40.4 % (36.0-48.0); HEMOGLOBIN. 13.6 g/dL (12.0-16.0); LYMPHOCYTES % 25.1 % (20.0-50.0); MEAN CORPUSCULAR HEMOGLOBIN 30.2 pg (28.0-32.0); MEAN CORPUSCULAR HGB CONC 33.7 g/dL (31.0-37.0); MEAN CORPUSCULAR VOLUME 89.5 fL (81.0-99.0); MEAN PLATELET VOLUME 7.6 fl (7.4-10.4); MONOCYTES % 9.2 % (2.0-8.0); NEUTROPHILS % 63.8 % (40.0-76.0); PLATELET 323 x1000/uL (130-400); RED BLOOD CELL COUNT 4.52 mill/uL (4.2-5.4); WHITE BLOOD COUNT 8.3 x1000/uL (4.5-11.0)
[2024-02-14 10:50] LABS: ACETAMINOPHEN < 2 ug/mL (10-30); ALANINE AMINOTRANSFERASE 16 IU/L (10-49); ALBUMIN 4.5 g/dL (3.2-4.8); ASPARTATE AMINOTRANSFERASE 23 IU/L (<34); BILIRUBIN TOTAL 2.4 mg/dL (0.1-1.0); CALCIUM 8.8 mg/dL (8.7-10.4); CARBON DIOXIDE 28 mEq/L (21-32); CHLORIDE 102 mEq/L (98-107); CREATININE 0.7 mg/dL (0.6-1.0); GLUCOSE 125 mg/dL (70-105); POTASSIUM 3.3 mEq/L (3.5-5.1); PROTEIN TOTAL 7.1 g/dL (6.0-8.3); SODIUM 136 mEq/L (136-145); UREA NITROGEN BLOOD 13 mg/dL (9-23)
[2024-02-14 10:52] LABS: ETHANOL BLOOD < 10 mg/dL (<10)
[2024-02-14] MEDS: RISPERIDONE 1MG TABLET PO SCH (14:30)
[2024-02-15 11:54] VITALS: BP 119/69; PULSE 72; RESP 16; TEMP 98.3
== END 2024-02-15 11:56 | disposition home or self-care (01) ==
LOC: ER 06:40
DX: R45.851 Suicidal ideations (principal); F20.9 Schizophrenia, unspecified; F31.9 Bipolar disorder, unspecified; F15.10 Other stimulant abuse, uncomplicated; Z79.899 Other long term (current) drug therapy; Z20.822 Contact with and (suspected) exposure to COVID-19
CPT/HCPCS: 36415; 80053; 80307; 80320; 80329; 84703; 85025; 87426; 99285; G0480

== ENCOUNTER 2024-02-15 23:56 | Emergency (ER) | payer MEDICAID ==
[~2024-02-15] VITALS: Ht 172.7 cm; Wt 82.0 kg
[2024-02-15 23:58] VITALS: O2SAT 99
[2024-02-16 00:26] LABS: BASOPHILS % 0.5 % (0.0-2.0); EOSINOPHILS % 0.8 % (0.0-5.0); HEMATOCRIT. 43.1 % (36.0-48.0); HEMOGLOBIN. 14.4 g/dL (12.0-16.0); LYMPHOCYTES % 27.8 % (20.0-50.0); MEAN CORPUSCULAR HEMOGLOBIN 30.6 pg (28.0-32.0); MEAN CORPUSCULAR HGB CONC 33.5 g/dL (31.0-37.0); MEAN CORPUSCULAR VOLUME 91.4 fL (81.0-99.0); MEAN PLATELET VOLUME 7.6 fl (7.4-10.4); MONOCYTES % 6.2 % (2.0-8.0); NEUTROPHILS % 64.7 % (40.0-76.0); PLATELET 310 x1000/uL (130-400); RED BLOOD CELL COUNT 4.71 mill/uL (4.2-5.4); RED CELL DISTRIBUTION WIDTH 15.3 % (11.6-14.6)
[2024-02-16 00:40] LABS: HCG SCREEN NEGATIVE
[2024-02-16 00:42] LABS: ACETAMINOPHEN < 2 ug/mL (10-30); ALANINE AMINOTRANSFERASE 13 IU/L (10-49); ALBUMIN 4.5 g/dL (3.2-4.8); ASPARTATE AMINOTRANSFERASE 17 IU/L (<34); BILIRUBIN TOTAL 0.8 mg/dL (0.1-1.0); CARBON DIOXIDE 24 mEq/L (21-32); CHLORIDE 109 mEq/L (98-107); CREATININE 0.7 mg/dL (0.6-1.0); ETHANOL BLOOD 12 mg/dL (<10); GLUCOSE 75 mg/dL (70-105); PROTEIN TOTAL 7.8 g/dL (6.0-8.3); SODIUM 140 mEq/L (136-145); UREA NITROGEN BLOOD 12 mg/dL (9-23)
[2024-02-16 01:34] LABS: CLARITY URINE CLOUDY (CLEAR); COLOR URINE DARK YELLOW (YELLOW); GLUCOSE URINE NEGATIVE (NEGATIVE); KETONES URINE TRACE (NEGATIVE); LEUKOCYTE ESTERASE URINE 2+ (NEGATIVE); NITRITE URINE NEGATIVE (NEGATIVE); OCCULT BLOOD URINE NEGATIVE (NEGATIVE); PH URINE 5.5 (4.5-8.0); PROTEIN URINE TRACE (NEGATIVE); SPECIFIC GRAVITY URINE 1.035 (1.005-1.030)
[2024-02-16 02:00] LABS: BACTERIA URINE 1+; CALCIUM OXALATE CRYSTALS URINE 2+ /lpf; RBC URINE NONE SEEN /hpf (0-2); SQUAMOUS EPITHELIAL CELL URINE FEW /lpf (RARE/1+)
[2024-02-16 02:03] LABS: *AMPHETAMINES SCREEN URINE PRESUMPTIVE POSITIVE (NEGATIVE); *BARBITURATES SCREEN URINE NEGATIVE (NEGATIVE); *BENZODIAZEPINES SCREEN URINE NEGATIVE (NEGATIVE); *COCAINE SCREEN URINE PRESUMPTIVE POSITIVE (NEGATIVE); CANNABINOID URINE SCREEN NEGATIVE (NEGATIVE); ECSTASY MDMA SCREEN URINE NEGATIVE (NEGATIVE); METHADONE URINE SCREEN Neg (NEGATIVE); OPIATES URINE SCREEN NEGATIVE (NEGATIVE); PHENCYCLIDINE URINE SCREEN NEGATIVE (NEGATIVE)
[2024-02-16 15:58] VITALS: BP 129/88; PULSE 71; RESP 15; TEMP 98.3
== END 2024-02-16 15:58 | disposition home or self-care (01) ==
LOC: ER 23:56
DX: R45.851 Suicidal ideations (principal); R45.850 Homicidal ideations; F15.10 Other stimulant abuse, uncomplicated; F14.10 Cocaine abuse, uncomplicated; F31.9 Bipolar disorder, unspecified; F20.9 Schizophrenia, unspecified; F10.129 Alcohol abuse with intoxication, unspecified; Z79.899 Other long term (current) drug therapy; Z20.822 Contact with and (suspected) exposure to COVID-19; Y90.0 Blood alcohol level of less than 20 mg/100 ml
CPT/HCPCS: 99285; 80053; 80305; 81003; 80307; 80329; 80320; 84703; 85025; 36415; 87426; Z7610; G0480